=== PATIENT | female | born 1970 | race Caucasian/White ===

== ENCOUNTER → 2019-09-05 08:55 | Outpatient (BNVA) | payer OTHER, SELFPAY | PROVIDERS: Family Provider Internal Medicine; PCP Internal Medicine; Visit Provider Obstetrics & Gynecology | DX: Z01.419 Encounter for gynecological examination (general) (routine) without abnormal findings (principal); N39.46 Mixed incontinence | CPT/HCPCS: 88175 ==

== ENCOUNTER → 2020-01-27 10:17 | Outpatient (BNVA) | payer OTHER, SELFPAY | PROVIDERS: Family Provider Internal Medicine; PCP Internal Medicine; Visit Provider Internal Medicine Rheumatology | DX: M32.19 Other organ or system involvement in systemic lupus erythematosus (principal); R76.8 Other specified abnormal immunological findings in serum; Z79.899 Other long term (current) drug therapy; M79.7 Fibromyalgia; M19.90 Unspecified osteoarthritis, unspecified site; D69.3 Immune thrombocytopenic purpura; E55.9 Vitamin D deficiency, unspecified; I10 Essential (primary) hypertension; Z87.891 Personal history of nicotine dependence | CPT/HCPCS: 99214 ==

== ENCOUNTER 2020-02-16 11:02 | Outpatient (CLI) | payer OTHER, SELFPAY ==
--- NOTE | 2020-02-16 11:28 | XR_ITS ---
WS: [id number] CHEST 2 VIEWS HISTORY: shortness of breath COMPARISON: 04/12/2014 Lungs: 5 mm nodule central LEFT lung is stable over several prior years. No suspicious masses or nodu les. Cardiac size: Normal. Mediastinum/Aorta: Normal mediastinum. Bones: Normal. XR/XR chest 2V* [id number] IMPRESSION: Stable chest, no acute cardiopulmonary disease.
== END 2020-02-16 11:03 | disposition home or self-care (01) ==
LOC: RADWPI 11:05
PROVIDERS: Family Provider Internal Medicine; PCP Internal Medicine; Visit Provider Internal Medicine Rheumatology
DX: R06.02 Shortness of breath (principal)
CPT/HCPCS: 71046

== ENCOUNTER 2020-03-08 12:53 | Outpatient (CLI) | payer OTHER, SELFPAY ==
--- NOTE | 2020-03-08 13:03 | MM_ITS ---
WS: [id number] Bilateral screening digital mammogram, 03/08/2020 Clinical Data: SCREEN Comparison: 02/11/2019, 12/05/2016, 12/05/2015, 09/08/2013, 09/20/2012, 03/17/2012, 08/12/2011. Findings: The breast parenchymal pattern shows fat replacement. No spiculated masses or clustered calcification s are seen. There are no secondary signs of carcinoma. MM/[id number] Impression: 1. Negative bilateral mammogram unchanged. 2. Recommend annual screening mammograms. BIRADS: 1-Negative FOLLOW UP: 1 Year Follow-up The CAD coat checker was used.
== END 2020-03-08 12:54 | disposition home or self-care (01) ==
LOC: RADSHAW 12:58
PROVIDERS: PCP Internal Medicine; Visit Provider Internal Medicine
DX: Z12.31 Encounter for screening mammogram for malignant neoplasm of breast (principal)
CPT/HCPCS: 77067

== ENCOUNTER → 2020-04-25 15:44 | Outpatient (BNVA) | payer OTHER, SELFPAY | PROVIDERS: PCP Internal Medicine; Visit Provider Internal Medicine Rheumatology | DX: M32.19 Other organ or system involvement in systemic lupus erythematosus (principal); Z79.899 Other long term (current) drug therapy; M19.011 Primary osteoarthritis, right shoulder; D69.3 Immune thrombocytopenic purpura; M79.7 Fibromyalgia; H53.8 Other visual disturbances; Z79.52 Long term (current) use of systemic steroids | CPT/HCPCS: 99214 ==

== ENCOUNTER 2020-05-09 15:03 | Outpatient (CLI) | payer OTHER, SELFPAY ==
--- NOTE | 2020-05-09 15:06 | USCV_ITS ---
Neha Kaba Age: 50 Gender: F : 1970 Exam Date: 05/09/2020 15:23 Ordering Phys: Nava Briscoe MD Technologist: Avi Vallecillo Exam Location: [facility] [place] Indication: SOB BP: 140 / 80 HR: 66 Rhythm: Sinus Technical Quality: Poor because of body habitus MEASUREMENTS (Male / Female) Normal Values 2D ECHO LV Diastolic Diameter PLAX 4.2 cm 4.2 - 5.9 / 3.9 - 5.3 cm LV Systolic Diameter PLAX 2.7 cm IVS Diastolic Thickness 0.9 cm 0.6 - 1.0 / 0.6 - 0.9 cm IVS Systolic Thickness 1.3 cm LVPW Diastolic Thickness 0.9 cm 0.6 - 1.0 / 0.6 - 0.9 cm LVPW Systolic Thickness 1.3 cm LVOT Diameter 2.0 cm LV Ejection Fraction 2D Teich 66.3 % LV Ejection Fraction MOD 2C 51.7 % LV Ejection Fraction 2C AL 50.7 % LA Diameter 3.8 cm LA Width 4.5 cm LA Height 4.7 cm RA Width 4.2 cm RA Height 5.0 cm Aorta at Sinotubular Diameter 1.3 cm M-MODE LV Diastolic Diameter MM 6.0 cm 4.2 - 5.9 / 3.9 - 5.3 cm LV Systolic Diameter MM 3.5 cm LV Ejection Fraction MM Teich 71.8 % IVS Diastolic Thickness MM 1.0 cm 0.6 - 1.0 / 0.6 - 0.9 cm IVS Systolic Thickness MM 1.6 cm LVPW Diastolic Thickness MM 0.9 cm 0.6 - 1.0 / 0.6 - 0.9 cm LVPW Systolic Thickness MM 1.7 cm RV Diastolic Diameter MM 1.8 cm Aortic Annulus Diameter 3.1 cm LA Ao Ratio MM 1.2 MV E Point Septal Separation 1.3 cm DOPPLER AV Peak Velocity 149.0 cm/s LVOT Peak Velocity 113.0 cm/s AV Area Cont Eq vti 2.6 cm squared AV Area Cont Eq pk 2.5 cm squared MV Area PHT 5.0 cm squared Mitral E to A Ratio 2.0 MV E' Velocity 14.0 cm/s Mitral E to MV E' Ratio 7.9 Mitral E to LV E' Lateral Ratio 8.7 Mitral E to LV E' Septal Ratio 7.3 TR Peak Velocity 267.0 cm/s TR Peak Gradient 28.5 mmHg TV Peak E Velocity 167.0 cm/s Right Atrial Pressure 3.0 mmHg Pulmonary Artery Systolic Pressu 31.5 mmHg FINDINGS Left Ventricle Normal left ventricular cavity size. Normal left ventricular systolic function. No regional wall motion abnormalities. Left ventricular ejection fraction is estimated at 60 %. Normal diastolic function. Right Ventricle The right ventricle is normal in size and function. Right Atrium The right atrium is normal in size. Left Atrium The left atrium is normal in size. Mitral Valve Moderately thickened mitral valve. No mitral valve stenosis. Mild mitral valve regurgitation. Aortic Valve Moderate aortic valve calcification. No aortic valve stenosis. No aortic valve regurgitation. Tricuspid Valve Structurally normal tricuspid valve without significant stenosis or regurgitation. Pulmonary artery systolic pressure is normal. Pulmonic Valve Structurally normal pulmonic valve without significant stenosis. There is no pulmonic regurgitation. Pericardium Normal pericardium without effusion. Aorta Normal ascending aorta dimension. CONCLUSIONS 1-Normal left ventricular cavity size. Normal left ventricular systolic function. No regional wall motion abnormalities. Left ventricular ejection fraction is estimated at 60 %. Normal diastolic function. 2-Moderately thickened mitral valve. No mitral valve stenosis. Mild mitral valve regurgitation. 3-Pulmonary artery systolic pressure is within normal limits. 4-Right atrial pressure is around 5 mm of mercury. 5-When compared to prior echocardiogram dated 10/12/2017 there appeared to be mild mitral regurgitation now Daniel Burt MD (Electronically Signed) Final Date: 09 May 2020 17:56 S
== END 2020-05-09 15:04 | disposition home or self-care (01) ==
LOC: US 15:05
PROVIDERS: PCP Internal Medicine; Visit Provider Internal Medicine
DX: R06.02 Shortness of breath (principal); G47.33 Obstructive sleep apnea (adult) (pediatric); I34.0 Nonrheumatic mitral (valve) insufficiency
CPT/HCPCS: 93306

== ENCOUNTER → 2020-06-02 08:18 | Outpatient (BNVA) | payer OTHER, SELFPAY | PROVIDERS: PCP Internal Medicine; Visit Provider Ophthalmology | DX: U07.1 COVID-19 (principal) | CPT/HCPCS: 87635 ==

== ENCOUNTER → 2020-09-10 08:34 | Outpatient (BNVA) | payer OTHER, SELFPAY | PROVIDERS: PCP Internal Medicine; Visit Provider Internal Medicine Rheumatology | DX: M32.19 Other organ or system involvement in systemic lupus erythematosus (principal); M19.90 Unspecified osteoarthritis, unspecified site; Z79.899 Other long term (current) drug therapy; Z79.52 Long term (current) use of systemic steroids; M79.7 Fibromyalgia; Z87.891 Personal history of nicotine dependence | CPT/HCPCS: 99214 ==

== ENCOUNTER → 2021-01-03 14:38 | Outpatient (BNVA) | payer OTHER, SELFPAY | PROVIDERS: PCP Internal Medicine; Visit Provider Internal Medicine Rheumatology | DX: M32.19 Other organ or system involvement in systemic lupus erythematosus (principal); M19.90 Unspecified osteoarthritis, unspecified site; Z79.899 Other long term (current) drug therapy; M79.7 Fibromyalgia; Z87.891 Personal history of nicotine dependence | CPT/HCPCS: 99214 ==

== ENCOUNTER → 2021-04-10 13:05 | Outpatient (BNVA) | payer OTHER, SELFPAY | PROVIDERS: PCP Internal Medicine; Visit Provider Internal Medicine Rheumatology | DX: M32.19 Other organ or system involvement in systemic lupus erythematosus (principal); M15.9 Polyosteoarthritis, unspecified; Z79.899 Other long term (current) drug therapy; M79.7 Fibromyalgia; G47.33 Obstructive sleep apnea (adult) (pediatric); F32.9 Major depressive disorder, single episode, unspecified; Z87.891 Personal history of nicotine dependence | CPT/HCPCS: 99214 ==

== ENCOUNTER 2021-06-27 13:32 | Outpatient (CLI) | payer OTHER, SELFPAY ==
--- NOTE | 2021-06-27 13:39 | MM_ITS ---
WS: [id number] BILATERAL SCREENING DIGITAL MAMMOGRAM WITH CAD HISTORY: SCREENING COMPARISON: 03/08/2020 and 02/11/2019 and 12/05/2016 Bilateral CC and MLO views submitted. Computer aided detection analyzed. Breast composition: There are scattered areas of fibroglandular density. No suspicious masses, microc alcifications or architectural distortion. Mild asymmetry in the central LEFT breast is stable over m ultiple prior studies. MM/[id number] IMPRESSION: BI-RADS: 2-Benign FOLLOW UP: 1 Year Follow-up
== END 2021-06-27 13:33 | disposition home or self-care (01) ==
LOC: RADSHAW 13:36
PROVIDERS: PCP Internal Medicine; Visit Provider Internal Medicine
DX: Z12.31 Encounter for screening mammogram for malignant neoplasm of breast (principal)
CPT/HCPCS: 77067

== ENCOUNTER → 2021-09-09 11:00 | Outpatient (BNVA) | payer OTHER, SELFPAY | PROVIDERS: PCP Internal Medicine; Visit Provider Obstetrics & Gynecology | DX: N39.46 Mixed incontinence (principal) | CPT/HCPCS: 81000 ==

== ENCOUNTER 2022-08-14 12:44 | Outpatient (CLI) | payer OTHER, SELFPAY ==
--- NOTE | 2022-08-14 13:17 | MM_ITS ---
WS: [id number] Bilateral screening 3D tomosynthesis digital mammogram, 08/14/2022 Clinical Data: SCREEN Comparison: 06/27/2021, 03/08/2020, 02/11/2019, 12/05/2016, 12/05/2015, 09/08/2013, 09/20/2012, 09/03/2011, , 09/09/2011, 08/12/2011. Findings: The breast parenchymal pattern shows fibroglandular tissue. No spiculated masses or clustered calcifi cations are seen. There are no secondary signs of carcinoma. MM/[id number] Impression: 1. Negative bilateral mammogram unchanged. 2. Recommend annual screening mammograms. BIRADS: 1-Negative FOLLOW UP: 1 Year Follow-up The CAD linen checker was used.
== END 2022-08-14 12:45 | disposition home or self-care (01) ==
LOC: RAD 12:45
PROVIDERS: PCP Internal Medicine; Visit Provider Internal Medicine
DX: Z12.31 Encounter for screening mammogram for malignant neoplasm of breast (principal)
CPT/HCPCS: 77063; 77067

== ENCOUNTER 2022-08-27 09:00 | Outpatient (CLI) | payer OTHER, SELFPAY ==
--- NOTE | 2022-08-27 09:15 | USCV_ITS ---
Neha Baumann Age: 52 Gender: F : 1970 Exam Date: 08/27/2022 09:30 Ordering Phys: Nava Briscoe MD Technologist: Gonzalez Beyer [place] [facility] [place]ication: mitral regurgitation non rheumatic BP: 115 / 78 HR: 60 Rhythm: Sinus Technical Quality: Adequate MEASUREMENTS (Male / Female) Normal Values 2D ECHO LV Diastolic Diameter PLAX 4.9 cm 4.2 - 5.9 / 3.9 - 5.3 cm LV Systolic Diameter PLAX 2.6 cm IVS Diastolic Thickness 1.1 cm 0.6 - 1.0 / 0.6 - 0.9 cm IVS Systolic Thickness 1.2 cm LVPW Diastolic Thickness 1.3 cm 0.6 - 1.0 / 0.6 - 0.9 cm LVPW Systolic Thickness 2.1 cm LVOT Diameter 2.0 cm LV Ejection Fraction 2D Teich 77.8 % LV Ejection Fraction MOD 2C 69.4 % LV Ejection Fraction 2C AL 69.1 % LA Diameter 3.1 cm LA Width 3.7 cm LA Height 5.3 cm RA Width 4.1 cm RA Height 4.6 cm Aorta at Sinotubular Diameter 2.5 cm IVC Diameter 1.9 cm M-MODE Aortic Annulus Diameter 2.6 cm LA Ao Ratio MM 1.2 MV E Point Septal Separation 0.5 cm DOPPLER AV Peak Velocity 158.0 cm/s LVOT Peak Velocity 123.0 cm/s AV Area Cont Eq vti 3.0 cm squared AV Area Cont Eq pk 2.5 cm squared MV Peak Velocity 124.0 cm/s MV Area PHT 4.5 cm squared Mitral E to A Ratio 0.8 MV E' Velocity 44.0 cm/s Mitral E to MV E' Ratio 5.4 Mitral E to LV E' Lateral Ratio 6.7 Mitral E to LV E' Septal Ratio 4.6 TR Peak Velocity 127.9 cm/s TR Peak Gradient 6.5 mmHg TR Mean Velocity 101.1 cm/s TR Mean Gradient 4.3 mmHg TR Velocity Time Integral 26.3 cm Right Atrial Pressure 3.0 mmHg Pulmonary Artery Systolic Pressu 9.5 mmHg PV Peak Velocity 103.0 cm/s RV Acceleration Time 0.1 s RV Ejection Time 0.3 s RV AcT/ET 0.4 FINDINGS Left Ventricle Normal left ventricular size and systolic function, EF 74 %. No regional wall motion abnormalities. Grade I/IV diastolic dysfunction (abnormal relaxation filling pattern), normal to mildly elevated filling pressures. Mild left ventricular hypertrophy. Right Ventricle Normal right ventricular size and systolic function. Right Atrium The right atrium is normal in size. Left Atrium The left atrium is normal in size. Mitral Valve Trace mitral valve regurgitation. Aortic Valve No gross abnormalities Tricuspid Valve Gross abnormalities noted Pulmonic Valve Pulmonic valve not well visualized. Pericardium No pericardial effusion. Aorta Normal aortic annulus size. IVC Normal inferior vena cava. CONCLUSIONS Normal left ventricular size and systolic function, EF 74 %. No regional wall motion abnormalities. Grade I/IV diastolic dysfunction (abnormal relaxation filling pattern), normal to mildly elevated filling pressures. Mild left ventricular hypertrophy. Trace mitral valve regurgitation. There is no pericardial effusion. There are no intracardiac masses. Technically difficult study because of the poor ultrasonic window. Dr Pam Razo MD FACC (Electronically Signed) Final Date: 27 August 2022 20:54 S
[2022-08-27] MEDS: perflutren protein-a microsphr 0.22 mg/mL SDV 3 mL IV (10:51)
== END 2022-08-27 09:01 | disposition home or self-care (01) ==
PROVIDERS: PCP Internal Medicine; Visit Provider Internal Medicine
DX: I34.0 Nonrheumatic mitral (valve) insufficiency (principal)
CPT/HCPCS: C8929; Q9956

== ENCOUNTER → 2022-10-01 13:00 | Outpatient (BNVA) | payer OTHER, SELFPAY | PROVIDERS: PCP Internal Medicine; Visit Provider Obstetrics & Gynecology | DX: Z01.419 Encounter for gynecological examination (general) (routine) without abnormal findings (principal) | CPT/HCPCS: 87624 ==

== ENCOUNTER 2022-11-04 10:35 | Inpatient (IN) | payer OTHER, SELFPAY ==
[2022-11-04] VITALS (7 sets, daily range): BP systolic 145–188; BP diastolic 78–117; PULSE 60–82; RESP 14–22; TEMP 36.7–36.8; O2SAT 93–97
--- NOTE | 2022-11-04 10:44 | PC.NURSE ---
unable to get temp due to pt moving around
--- NOTE | 2022-11-04 10:51 | ECG_ITS ---
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 Measurements Intervals [place] Rate: 78 P: 61 DE: 198 QRS: 29 QRSD: 96 T: 87 QT: 393 QTc: 449 Interpretive Statements SINUS RHYTHM LOW QRS VOLTAGE IN PRECORDIAL LEADS [QRS DEFLECTION < 1.0 mV IN CHEST LEADS] POSSIBLE ANTERIOR MYOCARDIAL INFARCTION , OF INDETERMINATE AGE [30 ms Q WAVE IN V3/V4, OR R < 0.2 mV IN V4] INTERPRETATION BASED ON A DEFAULT AGE OF 40 YEARS No previous ECG available for comparison Electronically Signed On 11-04-2022 23:15:37 CDT by Pam Razo M.D. [email or web address]/store/NU/[id number] f
--- NOTE | 2022-11-04 11:42 | W.ED.NAVMDI ---
HPI - Nausea/Vomiting/Diarrhea General: Chief complaint: Nausea/Vomiting/Diarrhea Stated complaint: n/v Time Seen by Provider: 11/04/22 11:30 History of Present Illness: This 52-year-old female with a history ITP, fibromyalgia and SLE presents to the ER with vomiting that started this morning. Patient woke up and started vomiting. She has vomited multiple times that she has nothing left in her stomach. She denies pain, fever, chest pain or shortness of breath. She denies any sick contact. She is clinically stable. Associated nausea: Yes Associated symtoms: Reports nausea Review of Systems General: Reports: 10 or more systems reviewed and unremarkable except in HPI and below GI: Reports: nausea and vomiting PFSH ED PFSH: Medical History Blurry vision, right eye s/p surgery Depression with anxiety Fibromyalgia High risk medication use Hypertension Idiopathic thrombocytopenia purpura Inflammatory arthritis Meningioma Removed 07/23/2020. Sleep apnea Systemic lupus erythematosus Uterine fibroid Identified on ultrasound in 2009 Surgical History No history of previous surgery S/P brain surgery (08/02/20) Removal meningioma. Performed in [place], [place]. Family History Family/Other Breast cancer maternal aunt Ovarian cancer maternal aunt Thyroid disease maternal aunt Grandfather Hypertension paternal Diabetes paternal Father Hypertension Diabetes Physical Exam Const: COMMON NORMALS: no acute distress, patient oriented x3, no limitations and alert HENMT: COMMON NORMALS: normocephalic HEAD & SCALP: normocephalic Eye: COMMON NORMALS: EOMs intact bilaterally Neck/C-Spine: COMMON NORMALS: full ROM and supple Chest: COMMONS NORMALS: normal inspection of the chest Resp: COMMON NORMALS: normal respiratory effort, No retractions, No use of accessory muscles and clear to auscultation bilaterally AUSCULTATION: clear to auscultation bilaterally Cardio: COMMON NORMALS: regular rate, regular rhythm and No murmurs present (Cardio) RATE: regular rate RHYTHM: regular rhythm GI: COMMON NORMALS: Normal to inspection, nondistended, normoactive bowel sounds present and non-tender : COMMON NORMALS: Yes no CVA tenderness BLADDER/KIDNEY EXAM: Yes no CVA tenderness Back/Pelvis: COMMON NORMALS: no CVA tenderness and no thoracic nor lumbar tenderness Extremity: GENERAL: Yes normal exam except as noted Neuro: COMMON NORMALS: patient oriented x3 and no focal motor deficits SENSORIUM/ORIENTATION: Yes alert Psych: COMMON NORMALS: mental status grossly normal and cooperative Course Consultations: Consultation #1: Case discussed with Dr. Vela who accepted patient for admission. Vital Signs: Vital signs: Vital Signs Pulse Rate 82 11/04/22 10:37 Respiratory Rate 22 H 11/04/22 10:37 Blood Pressure 182/117 11/04/22 10:37 Pulse Oximetry 97 11/04/22 10:37 Oxygen Delivery Me thod 11/04/22 10:37 MDM - Nausea/Vomiting/Diarrhea Medical Decision Making Medical decision making: Patient presents with sudden onset nausea and vomiting that started this morning. Work-up reveals hypokalemia with potassium of 2.6. Patient has no fever, chest pain, shortness of breath or any other significant pertinent symptoms. Oral and IV potassium replacement started. Case discussed with Dr. Vela who accepted patient for observation placement. Lab Data 11/04/22 11:47 11/04/22 11:47 Radiology Impressions Chest X-Ray 11/04/22 12:53 IMPRESSION: CARDIOMEGALY WITH NO ACUTE PULMONARY CHANGE. Laboratory Results WBC 12.5 10^3/uL (4.0-10.0) H 11/04/22 11:47 RBC 5.50 10^6/uL (4.1-5.3) H 11/04/22 11:47 Hgb 13.7 g/dL (11.5-15.3) 11/04/22 11:47 Hct 44.4 % (37.0-47.0) 11/04/22 11:47 MCV 80.7 fl (81-99) L 11/04/22 11:47 MCH 24.9 pg (28.0-34.0) L 11/04/22 11:47 MCHC 30.9 g/dL (30.0-36.0) 11/04/22 11:47 RDW 16.2 % (12.1-15.1) H 11/04/22 11:47 Plt Count 207 10^3/cmm (130-400) 11/04/22 11:47 MPV 11.8 fL (7.4-10.4) H 11/04/22 11:47 Neut % (Auto) 86.5 % 11/04/22 11:47 Lymph % (Auto) 7.3 % 11/04/22 11:47 Wagoner % (Auto) 5.2 % 11/04/22 11:47 Eos % (Auto) 0.1 % 11/04/22 11:47 Baso % (Auto) 0.6 % 11/04/22 11:47 Neut # (Auto) 10.78 10^3/uL (1.8-7.7) H 11/04/22 11:47 Lymph # (Auto) 0.9 10^3/uL (0.8-4.8) 11/04/22 11:47 Wagoner # (Auto) 0.7 10^3/uL (0.2-0.9) 11/04/22 11:47 Eos # (Auto) 0.0 10^3/uL (0.0-0.8) 11/04/22 11:47 Baso # (Auto) 0.1 10^3/uL (0.0-0.1) 11/04/22 11:47 Nucleated RBC % (auto) 0 % 11/04/22 11:47 Nucleated RBCs # 0.0 /100WBC 11/04/22 11:47 Sodium 142 mmol/L (136-145) 11/04/22 11:47 Potassium 2.6 mmol/L (3.5-5.1) L* 11/04/22 11:47 Chloride 105 mmol/L (98-107) 11/04/22 11:47 Carbon Dioxide 19 mmol/L (22-29) L 11/04/22 11:47 Anion Gap 20.6 (5-19) H 11/04/22 11:47 BUN 10 mg/dL (6-20) 11/04/22 11:47 Creatinine 0.6 mg/dL (0.5-0.9) 11/04/22 11:47 GFR Calculation 105.4 mL/min (90-130) 11/04/22 11:47 Glucose 208 mg/dL (65-115) H 11/04/22 11:47 Calculated Osmolality 299 mOsm/kg (285-295) H 11/04/22 11:47 Calcium 9.2 mg/dL (8.5-10.5) 11/04/22 11:47 Total Bilirubin 0.5 mg/dL (0.15-1.2) 11/04/22 11:47 AST 19 U/L (0-32) 11/04/22 11:47 ALT 21 U/L (0-33) 11/04/22 11:47 Alkaline Phosphatase 82 U/L (35-105) 11/04/22 11:47 Troponin T Baseline 6 ng/L (0-10) 11/04/22 11:45 Total Protein 7.6 g/dL (6.6-8.7) 11/04/22 11:47 Albumin 4.3 g/dL (3.5-5.2) 11/04/22 11:47 Globulin 3.3 g/dL (1.3-4.6) 11/04/22 11:47 Lipase 25 U/L (13-60) 11/04/22 11:47 Discharge Plan Discharge Patient Disposition: Placed in Observation Clinical Impression: Acute hypokalemia, Nausea & vomiting Coding Level of Care Code ED Medical Facilities Section Director for Nico Smith
[2022-11-04 11:56] LABS: Basophils # 0.1 10^3/uL (0.0-0.1); Basophils % 0.6 %; Eosinophils % 0.1 %; Hematocrit 44.4 % (37.0-47.0); Hemoglobin 13.7 g/dL (11.5-15.3); Lymphocytes # 0.9 10^3/uL (0.8-4.8); Lymphocytes % 7.3 %; Mean Corpuscular HGB Conc 30.9 g/dL (30.0-36.0); Mean Corpuscular Hemoglobin 24.9 pg (28.0-34.0); Mean Corpuscular Volume 80.7 fl (81-99); Mean Platelet Volume 11.8 fL (7.4-10.4); Monocytes # 0.7 10^3/uL (0.2-0.9); Monocytes % 5.2 %; Neutrophils # 10.78 10^3/uL (1.8-7.7); Neutrophils % 86.5 %; Nucleated Red Blood Cells % 0 %; Platelet Count 207 10^3/cmm (130-400); Red Cell Distribution Width 16.2 % (12.1-15.1); White Blood Count 12.5 10^3/uL (4.0-10.0)
[2022-11-04] MEDS: metoclopramide 5 mg/mL SDV 2 mL 10 MG IVP (11:58)
[2022-11-04] MEDS: sodium chloride 0.9% 1,000 ML 999 ML IV (11:58)
[2022-11-04 12:14] LABS: Alanine Aminotransferase 21 U/L (0-33); Albumin Level 4.3 g/dL (3.5-5.2); Alkaline Phosphatase 82 U/L (35-105); Anion Gap 20.6 (5-19); Aspartate Amino Transferase 19 U/L (0-32); Blood Urea Nitrogen 10 mg/dL (6-20); Calcium 9.2 mg/dL (8.5-10.5); Carbon Dioxide 19 mmol/L (22-29); Chloride 105 mmol/L (98-107); Globulin 3.3 g/dL (1.3-4.6); Glomerular Filtration Rate 105.4 mL/min (90-130); Glucose 208 mg/dL (65-115); Lipase 25 U/L (13-60); Osmolality Calculated 299 mOsm/kg (285-295); Sodium 142 mmol/L (136-145); Total Bilirubin 0.5 mg/dL (0.15-1.2); Total Protein 7.6 g/dL (6.6-8.7)
[2022-11-04 12:23] LABS: Potassium 2.6 mmol/L (3.5-5.1)
[2022-11-04] MEDS: potassium chloride ER 20 mEq Tablet 40 MEQ PO (12:49)
--- NOTE | 2022-11-04 12:53 | XR_ITS ---
WS: [id number] EXAMINATION: XR chest 1V [id number] REASON FOR EXAM: chest pain ORDER DATE: 11/04/2022 12:54 PM FINDINGS: There are perihilar and parenchymal granulomatous calcifications. Cardiomegaly is demonstrated. The re are no pleural effusions. XR/XR chest 1V [id number] IMPRESSION: CARDIOMEGALY WITH NO ACUTE PULMONARY CHANGE.
--- NOTE | 2022-11-04 13:04 | ECG_ITS ---
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 Measurements Intervals [place] Rate: 61 P: 51 IA: 188 QRS: -5 QRSD: 101 T: 32 QT: 433 QTc: 436 Interpretive Statements SINUS RHYTHM WITH SINUS ARRHYTHMIA POSSIBLE LEFT ATRIAL ENLARGEMENT [-0.1mV P-WAVE IN V1/V2] POSSIBLE ANTERIOR MYOCARDIAL INFARCTION , OF INDETERMINATE AGE [30 ms Q WAVE IN V3/V4, OR R < 0.2 mV IN V4] No previous ECG available for comparison Electronically Signed On 11-04-2022 23:10:32 CDT by Pam Razo M.D. [email or web address] health [email or web address] hospital.[employer]/store/OM/[id number]
[2022-11-04] MEDS: ALPRAZolam 0.5 mg Tablet 0.25 MG PO ×2 (13:14→19:45)
[2022-11-04] MEDS: potassium chloride premix 100 ML 50 MEQ IV (13:16)
[2022-11-04 13:33] LABS: Troponin(5th) Baseline 6 ng/L (0-10)
[2022-11-04] MEDS: ondansetron 2 mg/ML SDV 2 mL 4 MG IVP ×2 (13:45→18:45)
[2022-11-04 14:16] LABS: Troponin 5 2HR 8.06 ng/L (0-10)
[2022-11-04 14:27] LABS: Troponin 5 2HR Delta 2.06 ABS# (0-10)
--- NOTE | 2022-11-04 17:56 | CTR_ITS ---
PROCEDURE INFORMATION: Exam: CT Abdomen And Pelvis Without Contrast Exam date and time: 11/04/2022 6:30 PM Age: 52 years old Clinical indication: Abdominal pain; Epigastric; Additional info: Abdominal pain, abdominal pain, epigastric, evaluate for ileus, perforation TECHNIQUE: Imaging protocol: Computed tomography of the abdomen and pelvis without contrast. Radiation optimization: All CT scans at this facility use at least one of these dose optimization techniques: automated exposure control; mA and/or kV adjustment per patient size (includes targeted exams where dose is matched to clinical indication); or iterative reconstruction. REPORTING DATA: Count of CT and Cardiac NM exams in prior 12 months: This patient has received 0 known CTs and 0 known cardiac nuclear medicine studies in the 12 months prior to the current study. COMPARISON: CR XR chest 2V* [id number] 02/16/2020 11:38 AM RADIATION DOSE METRICS: Total DLP (mGy-cm): 1063.19 FINDINGS: Liver: 2.2 cm ill-defined nodule in the superior right liver lobe. 4.4 cm hypodense nodule in the posterior right liver lobe. 2.9 cm low-density nodule in the posterior inferior right liver lobe. Gallbladder and bile ducts: Normal. No calcified stones. No ductal dilation. Pancreas: Normal. No ductal dilation. Spleen: Calcified granulomas in the spleen. Adrenal glands: Normal. No mass. Kidneys and ureters: Normal. No hydronephrosis. Stomach and bowel: 11.0 x 9.6 x 7.8 cm lobulated mass in the left upper quadrant, anterior to the spleen and indenting the superior stomach. Mild diverticulosis of the colon. No diverticulitis. The small bowel is unremarkable. No obstruction. Appendix: The appendix is visualized and is normal. Intraperitoneal space: Unremarkable. No free air. No significant fluid collection. Vasculature: Unremarkable. No abdominal aortic aneurysm. Lymph nodes: Unremarkable. No enlarged lymph nodes. Urinary bladder: Unremarkable as visualized. Reproductive: Pedunculated calcified uterine fibroids. The ovaries are unremarkable. Bones/joints: Mild degenerative changes of the spine. No acute fracture or lytic lesion. Soft tissues: Lumbar soft tissue edema. CT/CT abdomen pelvis wo con [id number] IMPRESSION: 1. 11.0 cm lobulated mass in the left upper quadrant. This appears separate from the spleen and pancreas and indents the stomach. 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 Sarcoma, lymphoma, or metastatic disease are also in the differential. Tissue sampling is recommended. 2. Multiple low-density nodules in the liver, suspicious for metastatic disease. This can be further evaluated with liver MRI.
--- NOTE | 2022-11-04 17:58 | PM.HP ---
Providers/Chief Complaint Admitting Physician: Becka Vela MD Primary Care Provider: Nava Briscoe MD Chief Complaint: n/v History of Present Illness Neha Baumann is a 52 year old female with PMH lupus p/w multiple episodes of nausea, vomiting and epigastric pain that started this morning and has peristsed. she presnted to ER as no relief with OTC medications. Deniesn chest pain dyspanea palpitataion. Had endoscopy with Dr. Gee few months ago, records N/a at this time. Review of Systems General: Reports: 10 or more systems reviewed and unremarkable except in HPI and below Const: Denies: fever(s), chills or body aches Eyes: Denies: change in vision, blurry vision or photophobia ENMT: Reports: hoarseness; Denies: throat pain, enlarged tonsils, odynophagia or nasal congestion Card: Denies: chest pain, palpitations, irregular heart rhythm, edema, swelling of feet/ankles, lightheadedness, pre-syncope, dyspnea on exertion or orthopnea Resp: Denies: dyspnea, productive cough, non-productive cough, wheezing, stridor, pain on inspiration, change in phlegm color, hemoptysis or chest congestion GI: Denies: abdominal pain, nausea, vomiting, hematemesis, coffee ground emesis, dysphagia, heartburn, diarrhea, constipation, GI cramping, change in stool character, hematochezia or melena : Denies: flank pain, difficulty voiding, dysuria, urinary frequency, urinary urgency, urinary hesitancy or hematuria Musc: Denies: neck pain, back pain, extremity pain, joint swelling, joint warmth or deformity Neuro: Denies: headache(s), numbness in extremities, weakness in extremities, sensory changes, difficulty walking, frequent falls, dizziness, vertigo, behavioral changes, Slurred speech present or seizure-like activity Psych: Denies: anxiety, depression, suicidal ideation or homicidal ideation Endo: Denies: polyuria, polydipsia, tired all the time, cold intolerance or hot flashes Severo/Lymph: Denies: easy bruising or easy bleeding Medications/Allergies Home Medications Medication Instructions Recorded Confirmed Last Taken Type alprazolam 0.5 mg tablet 0.25 mg PO Q6H PRN anxiety 09/05/19 11/04/22 Unknown History bumetanide 1 mg tablet 1 mg PO BID 09/05/19 11/04/22 Unknown History lisinopril 40 mg tablet 40 mg PO DAILY 09/05/19 11/04/22 Unknown History paroxetine HCl 40 mg tablet (Paxil) 40 mg PO DAILY 09/05/19 11/04/22 Unknown History belimumab 200 mg/mL subcutaneous 200 mg SUBCUT .Q7days #4 mL 07/07/22 11/04/22 Unknown Rx syringe (Benlysta) cholecalciferol (vitamin D3) 50 50 mcg PO DAILY #30 caps 07/07/22 11/04/22 Unknown Rx mcg (2,000 unit) capsule leflunomide 20 mg tablet 20 mg PO DAILY #30 tabs 07/07/22 11/04/22 Unknown Rx prednisone 2.5 mg tablet 2.5 mg PO BID #60 tabs 08/25/22 11/04/22 Unknown Rx albuterol sulfate 2.5 mg/3 mL 2.5 mg inhalation Q4H PRN 11/04/22 11/04/22 Unknown History (0.083 %) solution for nebulization Shortness Of Breath amlodipine 10 mg tablet 10 mg PO QAM 11/04/22 11/04/22 Unknown History esomeprazole magnesium 40 mg 40 mg PO QAM 11/04/22 11/04/22 Unknown History capsule,delayed release hydroxychloroquine 200 mg tablet 200 mg PO BID 11/04/22 11/04/22 Unknown History ondansetron 4 mg disintegrating 4 mg PO Q6H PRN Nausea And Vomiting 11/04/22 11/04/22 Unknown History tablet potassium chloride 10 mEq 10 meq PO DAILY 11/04/22 11/04/22 Unknown History tablet,extended release prednisone 5 mg tablet 5 mg PO .UP TO BID PRN joint pain 11/04/22 11/04/22 Unknown History flare Allergies Allergy/AdvReac Type Severity Reaction Status Date / Time acetaminophen [From Vicodin] AdvReac Mild nauseated Verified 11/04/22 12:55 hydrocodone [From Vicodin] AdvReac Mild nauseated Verified 11/04/22 12:55 PFSH Acute PFSH: Medical History Blurry vision, right eye s/p surgery Depression with anxiety Fibromyalgia High risk medication use Hypertension Idiopathic thrombocytopenia purpura Inflammatory arthritis Meningioma Removed 07/23/2020. Sleep apnea Systemic lupus erythematosus Uterine fibroid Identified on ultrasound in 2009 Surgical History No history of previous surgery S/P brain surgery (08/02/20) Removal meningioma. Performed in [place], [place]. Family History Family/Other Breast cancer maternal aunt Ovarian cancer maternal aunt Thyroid disease maternal aunt Grandfather Hypertension paternal Diabetes paternal Father Hypertension Diabetes Vitals/I&O/Wt Last Vital Signs Temp 98.0 F 11/04/22 16:00 Pulse 64 11/04/22 16:00 Resp 14 11/04/22 16:00 BP 179/102 11/04/22 16:00 Pulse Ox 96 11/04/22 16:00 O2 Del Method 11/04/22 16:00 11/04/22 11/04/22 11/04/22 06:59 14:59 22:59 Intake Total 1100 / 1100 Balance 1100 / 1100 Weight last 48 hrs Weight 108.862 kg Weight 108.862 kg Physical Exam Narrative: General: No acute distress, AO x3 HEENT: PERRLA, pupils bilaterally equal and reactive, pallors not present Chest: Normal vesicular breath sounds, no added sounds, equal good air entry bilaterally CVS: S1-S2 regular, no murmurs, no tachycardia, no gallops, no rubs Abdomen: Soft,tender to palpation in the epigatrsic region. ? palpable mass in the RUQ Neuro: No focal deficits, no facial deformity, AO x3, power 5/5 in all limbs Data 11/04/22 11:47 11/04/22 11:47 A&P Assessment and plan (1) Nausea & vomiting: (2) Abdominal pain: (3) Acute hypokalemia: Plan presenting with intractable nausea, vomiting and abdominal pain no hematemesis, diarrhea or corona no sick contacts no h/o consumption of outsode food TTP in epigastric area , ?palpable mass RUQ has been diagnosed with indigestion in the past, [facility] in Apr 2022, will obtain records in am Differentials include acute gatsroenteritis, severe gastritis, hiatal hernia, cholelithiasis Will obtain CT abdomen given palpable mass , evaluate for ileus, obstruction, cholelithiasis prn zofran, reglan for symptomatic control acute hypokalemia with reported parasthesias in LE Likely 2/2 GI lossed start IVF NS with KCL @ 75 cc/hr clear liquid diet for now protonix 40 mg iv q12h Attestations Medical Necessity Statement*: anticipate less than 2 midnight stay for evaluation of intractable nausea, vomiting Coding Level of Care Code Acute Code for Chg Fwd Moderate MDM includes number and complexity of problems actively addressed during encounter, amount and/or complexity of data reviewed/ordered and described risk of complication, morbidity or mortality of management as documented Diagnoses Nausea & vomiting R11.2 Abdominal pain R10.9 Acute hypokalemia E87.6
[2022-11-04] MEDS: pantoprazole 40 mg SDV IVP (18:44)
[2022-11-04] MEDS: sodium chlor 0.9% + KCl 20 mEq 20 MEQ/1,000 ML BAG 100 MEQ IV (18:47)
--- NOTE | 2022-11-04 19:34 | PC.NURSE ---
Patient gave consent that sister in law Vania Phillips could have information phone number is [phone] and brother Migel Phillips phone number [phone] as well as a Parul Floyd. These can be added to her contact list.
[2022-11-04] MEDS: metoclopramide 5 mg/mL SDV 2 mL IVP (19:45)
[2022-11-05 03:47] VITALS: BP 186/93; PULSE 69; RESP 16; TEMP 36.8; O2SAT 95
[2022-11-05] MEDS: sodium chlor 0.9% + KCl 20 mEq 20 MEQ/1,000 ML BAG 100 MEQ IV (03:59)
[2022-11-05 05:25] LABS: Basophils % 0.4 %; Eosinophils % 0.2 %; Hematocrit 39.3 % (37.0-47.0); Hemoglobin 12.3 g/dL (11.5-15.3); Lymphocytes # 1.7 10^3/uL (0.8-4.8); Lymphocytes % 17.1 %; Mean Corpuscular HGB Conc 31.3 g/dL (30.0-36.0); Mean Corpuscular Hemoglobin 25.8 pg (28.0-34.0); Mean Corpuscular Volume 82.6 fl (81-99); Mean Platelet Volume 12.1 fL (7.4-10.4); Monocytes # 0.8 10^3/uL (0.2-0.9); Monocytes % 8.4 %; Neutrophils # 7.38 10^3/uL (1.8-7.7); Neutrophils % 73.6 %; Nucleated Red Blood Cells % 0 %; Platelet Count 175 10^3/cmm (130-400); Red Blood Count 4.76 10^6/uL (4.1-5.3); Red Cell Distribution Width 16.7 % (12.1-15.1)
[2022-11-05] MEDS: pantoprazole 40 mg SDV IVP (05:26)
[2022-11-05 05:37] LABS: Alanine Aminotransferase 18 U/L (0-33); Albumin Level 3.7 g/dL (3.5-5.2); Alkaline Phosphatase 66 U/L (35-105); Anion Gap 13.3 (5-19); Aspartate Amino Transferase 17 U/L (0-32); Blood Urea Nitrogen 5 mg/dL (6-20); Calcium 8.3 mg/dL (8.5-10.5); Carbon Dioxide 24 mmol/L (22-29); Chloride 113 mmol/L (98-107); Globulin 2.4 g/dL (1.3-4.6); Glomerular Filtration Rate 130.1 mL/min (90-130); Glucose 90 mg/dL (65-115); Osmolality Calculated 301 mOsm/kg (285-295); Potassium 3.3 mmol/L (3.5-5.1); Sodium 147 mmol/L (136-145); Total Bilirubin 0.5 mg/dL (0.15-1.2); Total Protein 6.1 g/dL (6.6-8.7)
[2022-11-05 06:00] VITALS: PULSE 71
[2022-11-05 08:00] VITALS: BP 139/89; PULSE 73; RESP 16; TEMP 36.8; O2SAT 92
--- NOTE | 2022-11-05 09:40 | PC.CHAP ---
Pastoral Care Encounter/Spiritual Assessment Type of Contact [] Declined shrimp cleaner visit [] Patient/Family/Request visit [] Outpatient visit [] Follow-up visit [] Physician referral [] Code/Alert [x] Routine visit [] Staff referral [] Actively dying [] Patient sleeping [] Family support [] [] Out of room [] Palliative care [] [] Receiving care in room [] Pre-surgical visit [] Trauma [] Long length of stay [] ICU visit [] Other: Relational/Emotional Strength [x] Patient feels connected with others/family/visitors/staff [] Distress [] Loneliness/isolation [] Abandonment Spirituality of Patient [x] Person of Karen [x] Attends [employer] of their Karen [x] Believes in Prayer [] Reads Bible or Episcopal materials [] There are Spiritual issues to be addressed [employer] Range [employer]ician Interventions [x] Prayer [x] Active listening [x] Non-anxious presence [x] Spiritual/emotional support [] Crisis/trauma care [] Spiritual counseling [] Bereavement support [] Provided bereavement packet [] Provided Bible/devotional materials [] Provided toy/stuffed animal, coloring book to patient or family member [] Provided Communion [] Anointing/[place] [] Salvation [x] Completed spiritual assessment [] Other: Impact on Illness or Injury [] Angry [] Fearful [] Anxious [] Often cries [] Exhaustion [] Unable to work [] Unable to attend taoism [] Unable to walk/stand [] Unable to read [] Unable to drive [] Unable to eat/drink [] Unable to sleep [] Unable to be with family [] Patient intubated [] Other: Summary Pt stated she is much better today than yesterday. She is waiting to hear from the doctor as to what caused her problems and to also determine a treatment plan. Pt is a person of karen and requested prayer. She has a strong support system outside the hospital. Time spent with patient 10m
[2022-11-05 11:33] VITALS: BP 178/102; PULSE 78; RESP 18; TEMP 37.3; O2SAT 95
[2022-11-05] MEDS: amlodipine 10 mg Tablet PO (13:12)
[2022-11-05] MEDS: lisinopril 20 mg Tablet 40 MG PO (13:12)
[2022-11-05] MEDS: potassium chloride ER 20 mEq Tablet 40 MEQ PO (13:12)
--- NOTE | 2022-11-05 14:27 | PM.DCS ---
Discharge Providers Date of Admission: 11/04/22 13:41 Date of Discharge: November 05, 2022 Attending Provider at Admission: Becka Vela MD Attending Provider at Discharge: Becka Vela MD Primary Care Provider: Nava Briscoe MD Diagnoses at Discharge Discharge Diagnosis (1) Nausea & vomiting: Status: Acute (2) Abdominal pain: Status: Acute (3) Acute hypokalemia: Status: Acute Reason for Visit Reason for Visit: n/v Hospital Course Hospital Course Neha Baumann is a 52 year old female with PMH lupus p/w multiple episodes of nausea, vomiting and epigastric pain that started morning of admission. She had no relief with [id number] medications and presented to the ER. She was found to have evidence of significant hypokalemia as a result of her GI losses. On exam she had tenderness to palpation in the epigastric region and there was concern for a palpable mass. Underwent a CT of the abdomen and pelvis which showed 11 cm lobulated mass in the left upper quadrant which appeared to be separate from the spleen and pancreas and indented the stomach. Suspected to be a gastrointestinal stromal tumor, versus sarcoma or lymphoma in the differential. There were multiple low-density nodules in the liver suspicious for metastatic disease. She received treatment with IV fluids, supplemental potassium, IV Zofran and Reglan. She also received IV Protonix every 12 hours. Following this management her symptoms are much improved. Her abdominal pain and nausea has resolved. She is eager to return home. Findings on the CAT scan with regards to mass were discussed. We have made an urgent referral at [facility] gastroenterology, we have been told that they will review within the next 2 weeks and contact the patient. In the interim also making an appointment with general surgery as outpatient at [facility] to expedite biopsy of the mass, perhaps this can be done endoscopically. Unfortunately we do not have general surgery services available at the hospital until November 11 therefore I am unable to expedite her work-up as an inpatient. Physical Exam Narrative: General: No acute distress, AO x3 HEENT: PERRLA, pupils bilaterally equal and reactive, pallors not present Chest: Normal vesicular breath sounds, no added sounds, equal good air entry bilaterally CVS: S1-S2 regular, no murmurs, no tachycardia, no gallops, no rubs Abdomen: Soft, nontender, no organomegaly, bowel sounds present Neuro: No focal deficits, no facial deformity, AO x3, power 5/5 in all limbs Discharge Data Studies Completed and Pending Completed Studies During Hospitalization Category Date Time Status CT abdomen pelvis wo con [id number] Routine Cat Scan 11/04/22 17:56 Completed XR chest 1V [id number] Stat Exams 11/04/22 12:53 Completed Radiology Impressions Chest X-Ray 11/04/22 12:53 IMPRESSION: CARDIOMEGALY WITH NO ACUTE PULMONARY CHANGE. Abdomen/Pelvis CT 11/04/22 17:56 IMPRESSION: 1. 11.0 cm lobulated mass in the left upper quadrant. This appears separate from the spleen and pancreas and indents the stomach. 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 Sarcoma, lymphoma, or metastatic disease are also in the differential. Tissue sampling is recommended. 2. Multiple low-density nodules in the liver, suspicious for metastatic disease. This can be further evaluated with liver MRI. ADDENDUM: 11/04/221920 THIS REPORT CONTAINS FINDINGS THAT MAY BE CRITICAL TO PATIENT CARE. The findings were verbally communicated via telephone conference with Dr Jesus at 7:19 PM CDT on 11/04/2022. The findings were acknowledged and understood. Laboratory Results WBC 10.0 10^3/uL (4.0-10.0) 11/05/22 04:34 RBC 4.76 10^6/uL (4.1-5.3) 11/05/22 04:34 Hgb 12.3 g/dL (11.5-15.3) 11/05/22 04:34 Hct 39.3 % (37.0-47.0) 11/05/22 04:34 MCV 82.6 fl (81-99) 11/05/22 04:34 MCH 25.8 pg (28.0-34.0) L 11/05/22 04:34 MCHC 31.3 g/dL (30.0-36.0) 11/05/22 04:34 RDW 16.7 % (12.1-15.1) H 11/05/22 04:34 Plt Count 175 10^3/cmm (130-400) 11/05/22 04:34 MPV 12.1 fL (7.4-10.4) H 11/05/22 04:34 Neut % (Auto) 73.6 % 11/05/22 04:34 Lymph % (Auto) 17.1 % 11/05/22 04:34 [place] % (Auto) 8.4 % 11/05/22 04:34 Eos % (Auto) 0.2 % 11/05/22 04:34 Baso % (Auto) 0.4 % 11/05/22 04:34 Neut # (Auto) 7.38 10^3/uL (1.8-7.7) 11/05/22 04:34 Lymph # (Auto) 1.7 10^3/uL (0.8-4.8) 11/05/22 04:34 [place] # (Auto) 0.8 10^3/uL (0.2-0.9) 11/05/22 04:34 Eos # (Auto) 0.0 10^3/uL (0.0-0.8) 11/05/22 04:34 Baso # (Auto) 0.0 10^3/uL (0.0-0.1) 11/05/22 04:34 Nucleated RBC % (auto) 0 % 11/05/22 04:34 Nucleated RBCs # 0.0 /100WBC 11/05/22 04:34 Sodium 147 mmol/L (136-145) H 11/05/22 04:34 Potassium 3.3 mmol/L (3.5-5.1) L 11/05/22 04:34 Chloride 113 mmol/L (98-107) H 11/05/22 04:34 Carbon Dioxide 24 mmol/L (22-29) 11/05/22 04:34 Anion Gap 13.3 (5-19) 11/05/22 04:34 BUN 5 mg/dL (6-20) L 11/05/22 04:34 Creatinine 0.5 mg/dL (0.5-0.9) 11/05/22 04:34 GFR Calculation 130.1 mL/min (90-130) H 11/05/22 04:34 Glucose 90 mg/dL (65-115) 11/05/22 04:34 Calculated Osmolality 301 mOsm/kg (285-295) H 11/05/22 04:34 Calcium 8.3 mg/dL (8.5-10.5) L 11/05/22 04:34 Total Bilirubin 0.5 mg/dL (0.15-1.2) 11/05/22 04:34 AST 17 U/L (0-32) 11/05/22 04:34 ALT 18 U/L (0-33) 11/05/22 04:34 Alkaline Phosphatase 66 U/L (35-105) 11/05/22 04:34 Troponin T Baseline 6 ng/L (0-10) 11/04/22 11:45 Troponin T 120 Minute 8.06 ng/L (0-10) 11/04/22 11:45 Delta Troponin T 2.06 ABS# (0-10) 11/04/22 11:45 Total Protein 6.1 g/dL (6.6-8.7) L 11/05/22 04:34 Albumin 3.7 g/dL (3.5-5.2) 11/05/22 04:34 Globulin 2.4 g/dL (1.3-4.6) 11/05/22 04:34 Lipase 25 U/L (13-60) 11/04/22 11:47 Vitals Last Vital Signs Temp 99.1 F 11/05/22 11:33 Pulse 78 11/05/22 11:33 Resp 18 11/05/22 11:33 BP 178/102 11/05/22 11:33 Pulse Ox 95 11/05/22 11:33 O2 Del Method 11/05/22 11:33 Discharge Plan Discharge Patient Disposition: Home Condition: Stable Prescriptions: New Protonix 40 mg tablet,delayed release (DR/EC) 40 mg PO BID 28 Days Qty: 56 0RF Continued bumetanide 1 mg tablet 1 mg PO BID lisinopril 40 mg tablet 40 mg PO DAILY alprazolam 0.5 mg tablet 0.25 mg PO Q6H PRN (Reason: anxiety) paroxetine HCl [Paxil] 40 mg tablet 40 mg PO DAILY cholecalciferol (vitamin D3) 50 mcg (2,000 unit) capsule 50 mcg PO DAILY Qty: 30 3RF leflunomide 20 mg tablet 20 mg PO DAILY Qty: 30 3RF Benlysta 200 mg/mL syringe 200 mg SUBCUT .Q7days Qty: 4 3RF Rx Instructions: not started as of 11/04/22 prednisone 2.5 mg tablet 2.5 mg PO BID Qty: 60 3RF albuterol sulfate 2.5 mg /3 mL (0.083 %) solution for nebulization 2.5 mg inhalation Q4H PRN (Reason: Shortness Of Breath) potassium chloride 10 mEq tablet extended release 10 meq PO DAILY amlodipine 10 mg tablet 10 mg PO QAM ondansetron 4 mg tablet,disintegrating 4 mg PO Q6H PRN (Reason: Nausea And Vomiting) prednisone 5 mg tablet 5 mg PO .UP TO BID PRN (Reason: joint pain flare) hydroxychloroquine 200 mg tablet 200 mg PO BID Discontinued esomeprazole magnesium 40 mg capsule,delayed release(DR/EC) 40 mg PO QAM Discharge Orders: Discharge Order (Routine); Ordered 11/05/22 Ordered By: Becka Vela Referrals: [facility], GI [Other] - 2 weeks (FAXED REFERRAL FOR APPOINTMENT ) Nava Briscoe MD [Primary Care Provider] - 11/10/22 11:15 am (FAXED ORDERS) Jean Kirkpatrick DO [Physician] - 1 week Discharge Diet: Usual diet Discharge Activity: Resume usual activity Patient Instructions: Abdominal Pain - Adult, Pantoprazole (By mouth), Acute Nausea and Vomiting (GEN), Opioid Safety Discharge Attestations Time Spent in Discharge Care*: greater than 30 min Quality Metrics Clinical Quality Measures [ No reported AMI, CVA or VTE this stay] Coding Level of Care Code Acute Code for Chg Fwd Diagnoses Nausea & vomiting R11.2 Abdominal pain R10.9 Acute hypokalemia E87.6
== END 2022-11-05 17:15 | disposition home or self-care (01) | DRG 641 ==
LOC: ER 13:41 → MEDSURG 14:35
PROVIDERS: Admitting Provider Student in an Organized Health Care Education/Training Program; Emergency Provider Family Medicine; PCP Internal Medicine; Visit Provider Student in an Organized Health Care Education/Training Program
DX: E87.6 Hypokalemia (principal); D69.3 Immune thrombocytopenic purpura; R11.2 Nausea with vomiting, unspecified; R93.2 Abnormal findings on diagnostic imaging of liver and biliary tract; R19.02 Left upper quadrant abdominal swelling, mass and lump; R10.13 Epigastric pain; M32.9 Systemic lupus erythematosus, unspecified; F41.8 Other specified anxiety disorders; M79.7 Fibromyalgia; I10 Essential (primary) hypertension; Z79.52 Long term (current) use of systemic steroids; Z79.899 Other long term (current) drug therapy
CPT/HCPCS: 36415; 71045; 74176; 80053; 83690; 84484; 85025; 93005; 96365; 96375; 99285; C9113; J2405; J2765; J3480; J7030

== ENCOUNTER 2022-11-14 06:03 | Outpatient (CLI) | payer OTHER, SELFPAY ==
--- NOTE | 2022-11-14 | CT_ITS ---
WS: [id number] CT chest w con* [id number] HISTORY: COUGH TECHNIQUE: Axial imaging performed through the thorax. Coronal and sagittal reformats are submitted. All CT scans at [facility] use at least one of these dose optimization techniques: automated exposure control; mA and/or kV adjustment per patient size (includes targeted exams where dose is mat ched to clinical indication); or iterative reconstruction. CONTRAST: Omnipaque 350; 100 mL IV. DLP: 602.04 mGy.cm COMPARISON: Recent CT abdomen and pelvis 11/04/2022 Lungs and central airway: Benign granuloma LEFT upper lobe. No pulmonary mass, nodule or pneumonia. Pleura: Normal. No pleural effusion. Heart and pericardium: Normal size heart with no pericardial effusion. Mediastinum and bonifacio: No mediastinum or hilar adenopathy. Vessels: Normal size aortic and pulmonary artery. No coronary artery calcifications. Chest wall and lower neck: No soft tissue masses. Upper abdomen: There is a large low-attenuation mass with peripheral discontinuous enhancement in the LEFT upper abdomen which abuts the spleen, stomach and liver and diaphragm. Mass measures 7.4 x 10.5 cm and was described on the unenhanced CT of 11/04/2012. I suspect this is likely from the lateral se gment LEFT lobe of the liver. There is displacement of the stomach and pancreas but I do not believe it arises from these organs. There is an additional peripherally enhancing mass in the posterior RIGH T lobe of liver measuring 4.3 x 2.4 cm. Only a portion of the liver is included. No additional abnorm alities. No adrenal mass. Osseous structures: No destructive process. CT/CT chest w con* [id number] IMPRESSION: 1. No pulmonary mass or pneumonia. No adenopathy. 2. Large peripherally enhancing mass LEFT upper quadrant measures 7.4 x 10.5 c m. 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 This will need to be further evaluated. There is an additional hemangioma in the posterior RIGHT lobe of liver which is much sm aller. Recommend follow-up MRI liver with and without contrast and hemangioma p rotocol. Notified Nava Briscoe MD at 11/14/2022 1:11 PM.
[2022-11-14] MEDS: iohexol 350 mg/mL 500 mL Btl (per mL) IV (06:44)
== END 2022-11-14 06:04 | disposition home or self-care (01) ==
PROVIDERS: PCP Internal Medicine; Visit Provider Internal Medicine
DX: R05.9 Cough, unspecified (principal); R19.00 Intra-abdominal and pelvic swelling, mass and lump, unspecified site
CPT/HCPCS: 71260; Q9967

== ENCOUNTER 2023-04-04 06:50 | Emergency (ER) | payer OTHER, SELFPAY ==
[2023-04-04 07:00] VITALS: PULSE 65; RESP 17; TEMP 36.5; O2SAT 100
--- NOTE | 2023-04-04 07:18 | CTR_ITS ---
PROCEDURE INFORMATION: Exam: CT Abdomen And Pelvis With Contrast Exam date and time: 04/04/2023 7:57 AM Age: 53 years old Clinical indication: Nausea and vomiting; Abdominal pain; Generalized; Prior surgery; Surgery date: 6+ months; Surgery type: Benign liver mass removal; Additional info: Abdomaina pain with nausea vomiting diarrhea TECHNIQUE: Imaging protocol: Computed tomography of the abdomen and pelvis with contrast. Contrast material: OMNI 350; Contrast volume: 100 ml; Contrast route: INTRAVENOUS (IV); REPORTING DATA: Count of CT and Cardiac NM exams in prior 12 months: This patient has received 2 known CTs and 0 known cardiac nuclear medicine studies in the 12 months prior to the current study. COMPARISON: CT abdomen pelvis wo con [id number] 11/04/2022 6:30 PM RADIATION DOSE METRICS: Total DLP (mGy-cm): 1077.72 FINDINGS: Diaphragm: Small hiatal hernia. Liver: Focal hypodensity adjacent to the fissure for the ligamentum teres likely represents 3rd inflow phenomenon. Partial left liver resection. Mildly irregular 2.3 cm hypodense subdiaphragmatic liver lesion stable from October 2022 heterogeneous mixed hyperattenuating and hypoattenuating posterior right liver mass measuring 5.0 x 3.1 cm is also similar to prior when allowing for differences in technique, as is more inferior ill-defined 2 cm right posterior liver lesion. Gallbladder and bile ducts: Normal. No calcified stones. No ductal dilation. Pancreas: Normal without ductal dilatation. Spleen: Normal. Adrenal glands: Normal. No mass. Kidneys and ureters: Normal. No hydronephrosis. Stomach and bowel: No dilatation. No evidence of mucosal thickening. Mild colonic diverticulosis without findings of diverticulitis. Appendix: Normal. Intraperitoneal space: Trace free pelvic fluid may be physiologic. No free air or focal well organized fluid collection. Vasculature: Minimal systemic atherosclerotic calcification without abdominal aortic aneurysm. Lymph nodes: No enlarged lymph nodes. Urinary bladder: Urinary bladder is unremarkable. Reproductive: Fibroid uterus. Bones/joints: No acute fracture. Mild degenerative changes along the spine and sacroiliac joints. Soft tissues: Scarring of the upper anterior abdominal wall. Mild body wall edema similar to prior. CT/CT abdomen pelvis w con* [id number] IMPRESSION: 1. No acute findings. 2. Multiple liver lesions stable from October 2022. 3. Fibroid uterus.
--- NOTE | 2023-04-04 07:24 | W.ED.NAVMDI ---
HPI - Nausea/Vomiting/Diarrhea General: Chief complaint: Nausea/Vomiting/Diarrhea Stated complaint: nausea, abd pain Time Seen by Provider: 04/04/23 07:00 History of Present Illness: 53-year-old female presents to the emergency department chief complaint of ongoing nausea vomiting and diarrhea with abdominal pain with cramping has been ongoing for last 2 days. Patient reports a prior surgery back in January for a removal of a liver mass patient reports it was noncancerous patient reports no other abdominal surgeries reports she is told her appendix and gallbladder patient Dors is upper abdominal pain where with persistent significant nausea vomiting diarrhea nonbloody in nature mucousy patient does not any endorse any fevers or chills at home reports generalized weakness fatigue. The patient presents to ER with her present for further evaluation management Associated nausea: Yes Associated symtoms: Reports fatigue, malaise and nausea; Denies anxiety, change in vision, chest pain, headache(s) or palpitations Review of Systems General: Reports: 10 or more systems reviewed and unremarkable except in HPI and below Const: Reports: change in appetite, fatigue and malaise; Denies: fever(s) or chills Eyes: Denies: change in vision or blurry vision Card: Denies: chest pain or palpitations Resp: Denies: dyspnea or productive cough GI: Reports: abdominal pain, nausea, vomiting and diarrhea : Denies: flank pain Musc: Denies: extremity pain or extremity swelling Skin/Breast: Denies: rash or pruritus Neuro: Denies: headache(s) Psych: Denies: anxiety or depression Severo/Lymph: Denies: easy bleeding All/Imm: Denies: urticaria, throat swelling or facial swelling PFSH ED PFSH: Medical History Blurry vision, right eye s/p surgery Depression with anxiety Fibromyalgia High risk medication use Hypertension Idiopathic thrombocytopenia purpura Inflammatory arthritis Meningioma Removed 07/23/2020. Sleep apnea Systemic lupus erythematosus Uterine fibroid Identified on ultrasound in 2009 Surgical History No history of previous surgery S/P brain surgery (08/02/20) Removal meningioma. Performed in [place], [place]. Family History Family/Other Breast cancer maternal aunt Ovarian cancer maternal aunt Thyroid disease maternal aunt Grandfather Hypertension paternal Diabetes paternal Father Hypertension Diabetes Social History Substance/Drug Use: never Physical Exam Const: OTHER: Appears in moderate distress active dry heaving in the room complaining of abdominal pain HENMT: COMMON NORMALS: normocephalic and atraumatic HEAD & SCALP: normocephalic and atraumatic Eye: COMMON NORMALS: Equal, round and reactive pupils present and EOMs intact bilaterally PUPIL: Yes Equal, round and reactive pupils present Neck/C-Spine: COMMON NORMALS: full ROM, supple and no JVD Lymph: LYMPHATIC: no lymphadenopathy noted Chest: COMMONS NORMALS: normal inspection of the chest and normal palpation of entire chest wall Resp: COMMON NORMALS: normal respiratory effort, No retractions and clear to auscultation bilaterally EFFORT & INSPECTION: Yes able to speak in complete sentences and Yes symmetric chest movement AUSCULTATION: clear to auscultation bilaterally Cardio: COMMON NORMALS: no JVD, regular rate and regular rhythm RATE: regular rate and tachycardic RHYTHM: regular rhythm GI: COMMON NORMALS: Normal to inspection, nondistended, normoactive bowel sounds present; negative for Soft to palpation and negative for non-tender (Obvious generalized abdominal tenderness appreciated to palpation located t) INSPECTION: Yes normal to inspection PALPATION: No Soft to palpation : COMMON NORMALS: Yes no CVA tenderness BLADDER/KIDNEY EXAM: Yes no CVA tenderness Back/Pelvis: COMMON NORMALS: no CVA tenderness Extremity: COMMON NORMALS: normal to inspection and full ROM Neuro: COMMON NORMALS: CN's II-XII intact bilaterally, moves all extremities and no focal motor deficits Psych: COMMON NORMALS: mental status grossly normal, Normal thought process present, cooperative and normal affect THOUGHT PROCESS: Normal thought process present Skin: COMMON NORMALS: no rashes or lesions noted GENERAL SKIN EXAM: no rashes or lesions noted Course Vital Signs: Vital signs: Vital Signs Temperature 97.7 F 04/04/23 07:00 Pulse Rate 59 L 04/04/23 09:30 Respiratory Rate 17 04/04/23 07:00 Blood Pressure 168/76 04/04/23 09:30 Pulse Oximetry 100 04/04/23 09:30 Oxygen Delivery Me thod Room Air 04/04/23 08:05 MDM - Nausea/Vomiting/Diarrhea Medical Decision Making Due to the patient's symptoms and condition IV established IV fluids provided for hydration lab work imaging obtained medication was provided for the patient's associated cramps and nausea and pain we will continue to follow. Lab work and imaging does reveal the patient has some mild hypokalemia otherwise no acute process noted on the patient's CT scan patient will be subsequent discharged home she was able to tolerate p.o. intake prior to subsequent discharge advised further follow-up with primary care in 2 to 3 days in which the patient was advised return the interim if any of her symptoms persist or worse. Lab Data 04/04/23 07:15 04/04/23 07:15 Radiology Impressions Abdomen/Pelvis CT 04/04/23 07:18 IMPRESSION: 1. No acute findings. 2. Multiple liver lesions stable from October 2022. 3. Fibroid uterus. Laboratory Results WBC 13.2 10^3/uL (4.0-10.0) H 04/04/23 07:15 RBC 5.44 10^6/uL (4.1-5.3) H 04/04/23 07:15 Hgb 13.0 g/dL (11.5-15.3) 04/04/23 07:15 Hct 42.5 % (37.0-47.0) 04/04/23 07:15 MCV 78.1 fl (81-99) L 04/04/23 07:15 MCH 23.9 pg (28.0-34.0) L 04/04/23 07:15 MCHC 30.6 g/dL (30.0-36.0) 04/04/23 07:15 RDW 14.7 % (12.1-15.1) 04/04/23 07:15 Plt Count 164 10^3/cmm (130-400) 04/04/23 07:15 MPV 11.6 fL (7.4-10.4) H 04/04/23 07:15 Neut % (Auto) 84.4 % 04/04/23 07:15 Lymph % (Auto) 8.1 % 04/04/23 07:15 [place] % (Auto) 6.4 % 04/04/23 07:15 Eos % (Auto) 0.1 % 04/04/23 07:15 Baso % (Auto) 0.5 % 04/04/23 07:15 Neut # (Auto) 11.13 10^3/uL (1.8-7.7) H 04/04/23 07:15 Lymph # (Auto) 1.1 10^3/uL (0.8-4.8) 04/04/23 07:15 [place] # (Auto) 0.9 10^3/uL (0.2-0.9) 04/04/23 07:15 Eos # (Auto) 0.0 10^3/uL (0.0-0.8) 04/04/23 07:15 Baso # (Auto) 0.1 10^3/uL (0.0-0.1) 04/04/23 07:15 Nucleated RBC % (auto) 0 % 04/04/23 07:15 Nucleated RBCs # 0.0 /100WBC 04/04/23 07:15 Sodium 140 mmol/L (136-145) 04/04/23 07:15 Potassium 2.5 mmol/L (3.5-5.1) L* 04/04/23 07:15 Chloride 101 mmol/L (98-107) 04/04/23 07:15 Carbon Dioxide 20 mmol/L (22-29) L 04/04/23 07:15 Anion Gap 21.5 (5-19) H 04/04/23 07:15 BUN 8 mg/dL (6-20) 04/04/23 07:15 Creatinine 0.5 mg/dL (0.5-0.9) 04/04/23 07:15 GFR Calculation 129.6 mL/min (90-130) 04/04/23 07:15 Glucose 179 mg/dL (65-115) H 04/04/23 07:15 Calculated Osmolality 293 mOsm/kg (285-295) 04/04/23 07:15 Calcium 9.2 mg/dL (8.5-10.5) 04/04/23 07:15 Total Bilirubin 0.5 mg/dL (0.15-1.2) 04/04/23 07:15 AST 12 U/L (0-32) 04/04/23 07:15 ALT 12 U/L (0-33) 04/04/23 07:15 Alkaline Phosphatase 97 U/L (35-105) 04/04/23 07:15 C-Reactive Protein 13.4 mg/L (0.0-4.9) H 04/04/23 07:15 Total Protein 7.8 g/dL (6.6-8.7) 04/04/23 07:15 Albumin 4.6 g/dL (3.5-5.2) 04/04/23 07:15 Globulin 3.2 g/dL (1.3-4.6) 04/04/23 07:15 Lipase 17 U/L (13-60) 04/04/23 07:15 Urine Color Straw (Yellow) 04/04/23 07:15 Urine Appearance Clear (CLEAR) 04/04/23 07:15 Urine pH 9 (5-7) H 04/04/23 07:15 Ur Specific [place] 1.010 (1.005-1.030) 04/04/23 07:15 Urine Protein Neg (Negative) 04/04/23 07:15 Urine Glucose (UA) 1+ (Normal) H 04/04/23 07:15 Urine Ketones 1+ (Negative) H 04/04/23 07:15 Urine Blood Neg (Negative) 04/04/23 07:15 Urine Nitrate Negative (Negative) 04/04/23 07:15 Urine Bilirubin Neg (Negative) 04/04/23 07:15 Prot Sulfosalicylic Acd Negative (Negative) 04/04/23 07:15 Urine Urobilinogen Norm mg/dL (Negative) 04/04/23 07:15 Ur Leukocyte Esterase Negative (Negative) 04/04/23 07:15 Urine Opiates Screen Negative ng/mL (Negative) 04/04/23 07:15 Ur Barbiturates Screen Negative ng/mL (Negative) 04/04/23 07:15 Ur Phencyclidine Scrn Negative ng/mL (Negative) 04/04/23 07:15 Ur Amphetamines Screen Negative ng/mL (Negative) 04/04/23 07:15 U Benzodiazepines Scrn Negative ng/mL (Negative) 04/04/23 07:15 Urine Cocaine Screen Negative ng/mL (Negative) 04/04/23 07:15 U Marijuana (THC) Screen Positive ng/mL (Negative) H 04/04/23 07:15 Discharge Plan Discharge Patient Disposition: Home Clinical Impression: Gastroenteritis, Acute hypokalemia, Nausea vomiting and diarrhea, Dehydration Condition: Stable Prescriptions: New ondansetron 4 mg tablet,disintegrating 4 mg PO TID PRN (Reason: nausea and vomiting) Qty: 20 0RF Lomotil 2.5-0.025 mg tablet 1 tab PO Q12H PRN (Reason: diarrhea) Qty: 10 0RF Protonix 40 mg tablet,delayed release (DR/EC) 40 mg PO DAILY Qty: 10 0RF potassium chloride 20 mEq packet 20 meq PO DAILY Qty: 5 0RF No Action bumetanide 1 mg tablet 1 mg PO BID lisinopril 40 mg tablet 40 mg PO QAM alprazolam 0.5 mg tablet 0.25 mg PO Q6H PRN (Reason: anxiety) paroxetine HCl [Paxil] 40 mg tablet 40 mg PO QAM cholecalciferol (vitamin D3) 50 mcg (2,000 unit) capsule 50 mcg PO DAILY Qty: 90 1RF hydroxychloroquine 200 mg tablet 200 mg PO BID Qty: 180 1RF prednisone 20 mg tablet See Rx Instructions PO .COMPLEX PRN (Reason: joint pain flare) Qty: 30 1RF Rx Instructions: take 1 or 2 tab daily for up to 7 days as needed for arthritis flare amlodipine 10 mg tablet 10 mg PO QAM ondansetron 4 mg tablet,disintegrating 4 mg PO Q6H PRN (Reason: Nausea And Vomiting) Tylenol Ex Str Rapid Release 500 mg Tablet 1,000 mg PO Q6H PRN (Reason: Pain) potassium chloride 20 mEq tablet,ER particles/crystals 20 meq PO QAM prednisone 5 mg tablet 5 mg PO QAM leflunomide 20 mg tablet 20 mg PO QAM Discharge Orders: Discharge ED (Routine); Ordered 04/04/23 Ordered By: Rosalino Lee Referrals: Nava Briscoe MD [Primary Care Provider] - 1-3 days Discharge Diet: Advance as tolerated Discharge Activity: Increase activity as tolerated Patient Instructions: Dehydration (ED), Hypokalemia (ED), Gastroenteritis (ED), Acute Nausea and Vomiting (ED), Acute Nausea and Vomiting (DC) Activity Restrictions/Additional Instructions: Please further follow-up with your primary care doctor in 2 to 3 days, please take medications as prescribed please adhere to a clear liquid diet to advance his toleration and please return in the interim if any of your symptoms persist or worse. Coding Level of Care Code ED Seamless Tube Drawer for Nico Smith
[2023-04-04] MEDS: ondansetron 2 mg/ML SDV 2 mL 4 MG IVP (07:29)
[2023-04-04 07:30] LABS: Add Urine Microscopic? NO; Charge for UA Resulting for Rev
[2023-04-04] MEDS: dicyclomine 20 mg Tablet PO (07:31)
[2023-04-04] MEDS: pantoprazole 40 mg SDV IVP (07:31)
[2023-04-04 07:32] LABS: Basophils # 0.1 10^3/uL (0.0-0.1); Basophils % 0.5 %; Eosinophils % 0.1 %; Hematocrit 42.5 % (37.0-47.0); Lymphocytes # 1.1 10^3/uL (0.8-4.8); Lymphocytes % 8.1 %; Mean Corpuscular HGB Conc 30.6 g/dL (30.0-36.0); Mean Corpuscular Hemoglobin 23.9 pg (28.0-34.0); Mean Corpuscular Volume 78.1 fl (81-99); Mean Platelet Volume 11.6 fL (7.4-10.4); Monocytes # 0.9 10^3/uL (0.2-0.9); Monocytes % 6.4 %; Neutrophils # 11.13 10^3/uL (1.8-7.7); Neutrophils % 84.4 %; Nucleated Red Blood Cells % 0 %; Platelet Count 164 10^3/cmm (130-400); Red Blood Count 5.44 10^6/uL (4.1-5.3); Red Cell Distribution Width 14.7 % (12.1-15.1); White Blood Count 13.2 10^3/uL (4.0-10.0)
[2023-04-04] MEDS: sodium chloride 0.9% 1,000 ML 999 ML IV (07:33)
[2023-04-04 07:35] VITALS: BP 162/92; PULSE 64; O2SAT 100
[2023-04-04 07:46] LABS: Urine Appearance Clear (CLEAR); Urine Color Straw (Yellow); pH Urine 9 (5-7)
[2023-04-04 07:49] LABS: Glucose Urine UA 1+ (Normal); Ketones Urine 1+ (Negative); Protein Urine Neg (Negative)
[2023-04-04 07:50] LABS: Amphetamines Screen Urine Negative (Negative); Barbiturates Screen Urine Negative (Negative); Benzodiazepines Screen Urine Negative (Negative); Bilirubin Urine Neg (Negative); Blood Urine Neg (Negative); Cocaine Screen Urine Negative (Negative); Nitrate Urine Negative (Negative); Opiate Screen Urine Negative (Negative); PCP Screen Urine Negative (Negative); Sulfosalicylic Acid Urine Negative (Negative); THC Screen Urine Positive (Negative); Urobilinogen Urine Norm (Negative)
[2023-04-04 07:51] LABS: Leukocyte Esterase Urine Negative (Negative)
[2023-04-04 07:57] LABS: Alanine Aminotransferase 12 U/L (0-33); Albumin Level 4.6 g/dL (3.5-5.2); Alkaline Phosphatase 97 U/L (35-105); Anion Gap 21.5 (5-19); Aspartate Amino Transferase 12 U/L (0-32); Blood Urea Nitrogen 8 mg/dL (6-20); C Reactive Protein 13.4 mg/L (0.0-4.9); Calcium 9.2 mg/dL (8.5-10.5); Carbon Dioxide 20 mmol/L (22-29); Chloride 101 mmol/L (98-107); Globulin 3.2 g/dL (1.3-4.6); Glomerular Filtration Rate 129.6 mL/min (90-130); Glucose 179 mg/dL (65-115); Lipase 17 U/L (13-60); Osmolality Calculated 293 mOsm/kg (285-295); Sodium 140 mmol/L (136-145); Total Bilirubin 0.5 mg/dL (0.15-1.2); Total Protein 7.8 g/dL (6.6-8.7)
[2023-04-04] MEDS: iohexol 350 mg/mL 500 mL Btl (per mL) IV (08:01)
[2023-04-04 08:05] VITALS: BP 161/81; PULSE 59; O2SAT 99
[2023-04-04 08:05] LABS: Potassium 2.5 mmol/L (3.5-5.1)
[2023-04-04 08:30] VITALS: BP 171/89; PULSE 57; O2SAT 99
[2023-04-04] MEDS: potassium chloride premix 100 ML 50 MEQ IV (08:35)
[2023-04-04 09:30] VITALS: BP 168/76; PULSE 59; O2SAT 100
[2023-04-04 10:45] VITALS: BP 187/103; PULSE 60; O2SAT 100
== END 2023-04-04 10:46 | disposition home or self-care (01) ==
PROVIDERS: Emergency Provider Emergency Medicine; PCP Internal Medicine
DX: K52.9 Noninfective gastroenteritis and colitis, unspecified (principal); E87.6 Hypokalemia; E86.0 Dehydration; I10 Essential (primary) hypertension; M32.9 Systemic lupus erythematosus, unspecified
CPT/HCPCS: 74177; 80053; 80306; 81003; 83690; 85025; 86140; 96361; 96365; 96366; 96375; 99285; C9113; J2405; J3480; J7030; Q9967

== ENCOUNTER → 2023-05-20 15:54 | Outpatient (BNVA) | payer OTHER, SELFPAY | PROVIDERS: PCP Internal Medicine; Visit Provider Internal Medicine Rheumatology | DX: R11.2 Nausea with vomiting, unspecified (principal); M19.90 Unspecified osteoarthritis, unspecified site; Z79.899 Other long term (current) drug therapy; M32.9 Systemic lupus erythematosus, unspecified; M54.2 Cervicalgia; M32.19 Other organ or system involvement in systemic lupus erythematosus; M79.7 Fibromyalgia | CPT/HCPCS: 36415; 80076; 82565; 83735; 84132; 85025; 86036; 86140 ==

== ENCOUNTER 2023-05-21 07:22 | Outpatient (CLI) | payer OTHER, SELFPAY ==
--- NOTE | 2023-05-21 07:42 | XR_ITS ---
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 Vertebral body heights and intervertebral disc sp aces are maintained except for mild narrowing of C5-6. The cervical bony alignment and osseous densi ties appear normal. There is no prevertebral soft tissue change. IMPRESSION: No acute osseous abnormality.
== END 2023-05-21 07:23 | disposition home or self-care (01) ==
PROVIDERS: PCP Internal Medicine; Visit Provider Internal Medicine Rheumatology
DX: M19.90 Unspecified osteoarthritis, unspecified site (principal); M54.2 Cervicalgia; Z79.899 Other long term (current) drug therapy
CPT/HCPCS: 72040

== ENCOUNTER 2023-06-05 17:39 | Emergency (ER) | payer OTHER, SELFPAY ==
--- NOTE | 2023-06-05 17:46 | ECG_ITS ---
[facility] Test Date: 2023-06-05 Pat Name: Neha Baumann Department: Room: Gender: Female Paradi Tender: : 1970 Requested By: Parminder Garrido Order Number: [id number] Nancy MD: James Cabrera M.D. Measurements Intervals [place] Rate: 72 P: 51 MA: 151 QRS: -13 QRSD: 100 T: 30 QT: 407 QTc: 446 Interpretive Statements SINUS RHYTHM WITH SINUS ARRHYTHMIA POSSIBLE ANTERIOR MYOCARDIAL INFARCTION , PROBABLY OLD [30 ms Q WAVE IN V3/V4, OR R < 0.2 mV IN V4] Compared to ECG 11/04/2022 13:04:58 No significant changes Electronically Signed On 06-05-2023 23:07:50 CDT by James Cabrera M.D. [email or web address] [id number]
[2023-06-05 17:49] VITALS: BP 142/87; PULSE 67; RESP 18; TEMP 36.3; O2SAT 98; BMI 44.6
[2023-06-05 18:23] LABS: Basophils # 0.1 10^3/uL (0.0-0.1); Basophils % 0.6 %; Eosinophils # 0.1 10^3/uL (0.0-0.8); Hematocrit 41.1 % (36-47); Lymphocytes # 1.4 10^3/uL (0.8-4.8); Lymphocytes % 15.4 %; Mean Corpuscular HGB Conc 30.7 g/dL (30-55); Mean Corpuscular Hemoglobin 24.7 pg (27-33); Mean Corpuscular Volume 80.6 fl (85-98); Mean Platelet Volume 11.8 fL (7.4-10.4); Monocytes # 0.5 10^3/uL (0.2-0.9); Monocytes % 5.8 %; Neutrophils # 6.79 10^3/uL (1.8-7.7); Neutrophils % 76.7 %; Nucleated Red Blood Cells % 0 %; Platelet Count 134 10^3/cmm (157-399); Red Cell Distribution Width 17.8 % (12.1-15.1); White Blood Count 8.84 10^3/uL (3.29-11.43)
--- NOTE | 2023-06-05 18:23 | ED_ITS ---
HPI - Chest Pain General: Chief Complaint: Chest Pain Stated Complaint: chest pain, low pot Time Seen by Provider: 06/05/23 18:23 History of Present Illness: 53-year-old female comes in today with complaints of chest discomfort, nausea, and anxiety. Patient appears nontoxic. Patient appears anxious. Patient appears in no pain. Patient has a history of lupus, fibromyalgia, GERD, hypertension, depression with anxiety. Patient admits to taking 1/2 mg of Xanax prior to coming to the ER. Patient does report some improvement of symptoms. Patient had been notified by her primary care office that her potassium was low and patient does have a history of prior hypokalemia with symptoms such as this. Associated symptoms: Reports dyspnea and nausea; Deny fever(s) or vomiting Review of Systems Const: Denies: fever(s) Card: Reports: chest pain Resp: Reports: dyspnea GI: Reports: nausea; Denies: vomiting, diarrhea or constipation : Denies: difficulty voiding Musc: Denies: back pain Skin/Breast: Denies: rash PFSH ED PFSH: Medical History Blurry vision, right eye s/p surgery Depression with anxiety Fibromyalgia High risk medication use Hypertension Idiopathic thrombocytopenia purpura Inflammatory arthritis Meningioma Removed 07/23/2020. Sleep apnea Systemic lupus erythematosus Uterine fibroid Identified on ultrasound in 2009 Surgical History No history of previous surgery S/P brain surgery (08/02/20) Removal meningioma. Performed in [place], [place]. Family History Family/Other Breast cancer maternal aunt Ovarian cancer maternal aunt Thyroid disease maternal aunt Grandfather Hypertension paternal Diabetes paternal Father Hypertension Diabetes Social History Substance/Drug Use: never Physical Exam Const: COMMON NORMALS: alert HENMT: COMMON NORMALS: normocephalic HEAD & SCALP: normocephalic Neck/C-Spine: COMMON NORMALS: full ROM Resp: COMMON NORMALS: normal respiratory effort and clear to auscultation b ilaterally AUSCULTATION: clear to auscultation bilaterally Cardio: COMMON NORMALS: regular rate and regular rhythm RATE: regular rate RHYTHM: regular rhythm GI: COMMON NORMALS: non-tender : COMMON NORMALS: Yes no CVA tenderness BLADDER/KIDNEY EXAM: Yes no CVA tenderness Back/Pelvis: COMMON NORMALS: no CVA tenderness and thoracic and lumbar spine normal to inspection Extremity: COMMON NORMALS: no pedal edema Neuro: SENSORIUM/ORIENTATION: Yes alert Skin: COMMON NORMALS: turgor normal GENERAL SKIN EXAM: turgor normal Course Vital Signs: Vital signs: Vital Signs Temperature 97.4 F L 06/05/23 17:49 Pulse Rate 67 06/05/23 17:49 Respiratory Rate 18 06/05/23 17:49 Blood Pressure 142/87 06/05/23 17:49 Pulse Oximetry 98 06/05/23 17:49 Oxygen Delivery Me thod Room Air 06/05/23 17:49 MDM - Chest Pain Medical Decision Making 53-year-old female comes in today with chest pressure, anxiety, and shortness of breath. On exam patient appears nontoxic. Patient appears in mild pain. Heart rates regular. Abdomen soft nontender. Skin is warm and dry. Vital signs are normal. No edema is noted in the extremities. Differential diagnosis includes hypokalemia, anxiety, ACS, CHF. Potassium was a little low at 3.3. Baseline and 2-hour troponin were unchanged. Chest x-ray was normal. No changes were noted on EKG. Believe patient's symptoms were probably secondary to her hypokalemia and anxiety. Patient was given 40 mEq of potassium in the ER she had already taken medicine earlier in the day for her potassium. She should continue with her routine care. And follow-up with primary care for further instructions. Patient stated understanding and agreed to plan. Lab Data 06/05/23 18:12 06/05/23 18:12 Radiology Impressions Chest X-Ray 06/05/23 18:40 IMPRESSION: 1. Bibasilar atelectasis versus minimal infiltrate 2. Cardiomegaly. Laboratory Results WBC 8.84 10^3/uL (3.29-11.43) 06/05/23 18:12 RBC 5.10 10^6/uL (3.85-5.65) 06/05/23 18:12 Hgb 12.60 g/dL (11.27-16.99) 06/05/23 18:12 Hct 41.1 % (36-47) 06/05/23 18:12 MCV 80.6 fl (85-98) L 06/05/23 18:12 MCH 24.7 pg (27-33) L 06/05/23 18:12 MCHC 30.7 g/dL (30-55) 06/05/23 18:12 RDW 17.8 % (12.1-15.1) H 06/05/23 18:12 Plt Count 134 10^3/cmm (157-399) L 06/05/23 18:12 MPV 11.8 fL (7.4-10.4) H 06/05/23 18:12 Neut % (Auto) 76.7 % 06/05/23 18:12 Lymph % (Auto) 15.4 % 06/05/23 18:12 [place] % (Auto) 5.8 % 06/05/23 18:12 Eos % (Auto) 1.0 % 06/05/23 18:12 Baso % (Auto) 0.6 % 06/05/23 18:12 Neut # (Auto) 6.79 10^3/uL (1.8-7.7) 06/05/23 18:12 Lymph # (Auto) 1.4 10^3/uL (0.8-4.8) 06/05/23 18:12 [place] # (Auto) 0.5 10^3/uL (0.2-0.9) 06/05/23 18:12 Eos # (Auto) 0.1 10^3/uL (0.0-0.8) 06/05/23 18:12 Baso # (Auto) 0.1 10^3/uL (0.0-0.1) 06/05/23 18:12 Nucleated RBC % (auto) 0 % 06/05/23 18:12 Nucleated RBCs # 0.0 /100WBC 06/05/23 18:12 Sodium 140 mmol/L (136-145) 06/05/23 18:12 Potassium 3.3 mmol/L (3.5-5.1) L 06/05/23 18:12 Chloride 102 mmol/L (98-107) 06/05/23 18:12 Carbon Dioxide 23 mmol/L (22-29) 06/05/23 18:12 Anion Gap 18.3 (5-19) 06/05/23 18:12 BUN 12 mg/dL (6-20) 06/05/23 18:12 Creatinine 0.5 mg/dL (0.5-0.9) 06/05/23 18:12 GFR Calculation 129.6 mL/min (90-130) 06/05/23 18:12 Glucose 214 mg/dL (65-115) H 06/05/23 18:12 Calculated Osmolality 296 mOsm/kg (285-295) H 06/05/23 18:12 Calcium 9.3 mg/dL (8.5-10.5) 06/05/23 18:12 Total Bilirubin 0.4 mg/dL (0.15-1.2) 06/05/23 18:12 AST 12 U/L (0-32) 06/05/23 18:12 ALT 11 U/L (0-33) 06/05/23 18:12 Alkaline Phosphatase 84 U/L (35-105) 06/05/23 18:12 Troponin T Baseline < 6 ng/L (0-10) 06/05/23 18:12 Troponin T 120 Minute 6.87 ng/L (0-10) 06/05/23 20:03 Delta Troponin T 0.12961 ABS# (0-10) 06/05/23 20:03 NT-Pro-B Natriuret Pep 120 pg/mL (0-125) 06/05/23 18:12 Total Protein 6.6 g/dL (6.6-8.7) 06/05/23 18:12 Albumin 4.1 g/dL (3.5-5.2) 06/05/23 18:12 Globulin 2.5 g/dL (1.3-4.6) 06/05/23 18:12 All radiology interpretation(s) finalized by discharge Discharge Plan Discharge Patient Disposition: Home Clinical Impression: Hypokalemia, Atypical chest pain Condition: Stable Prescriptions: No Action bumetanide 1 mg tablet 1 mg PO BID lisinopril 40 mg tablet 40 mg PO QAM alprazolam 0.5 mg tablet 0.25 mg PO Q6H PRN (Reason: anxiety) paroxetine HCl [Paxil] 40 mg tablet 40 mg PO QAM cholecalciferol (vitamin D3) 50 mcg (2,000 unit) capsule 50 mcg PO DAILY Qty: 90 1RF hydroxychloroquine 200 mg tablet 200 mg PO BID Qty: 180 1RF prednisone 20 mg tablet See Rx Instructions PO .COMPLEX PRN (Reason: joint pain flare) Qty: 30 1RF Rx Instructions: take 1 or 2 tab daily for up to 7 days as needed for arthritis flare sulfasalazine 500 mg tablet 0.5 g PO BID Qty: 60 3RF Rx Instructions: Take 1 tab daily x1wk then stay on 1 tab twice daily.... give with food (meal/snack) amlodipine 10 mg tablet 10 mg PO QAM ondansetron 4 mg tablet,disintegrating 4 mg PO Q6H PRN (Reason: Nausea And Vomiting) Tylenol Ex Str Rapid Release 500 mg Tablet 1,000 mg PO Q6H PRN (Reason: Pain) potassium chloride 20 mEq tablet,ER particles/crystals 20 meq PO QAM prednisone 5 mg tablet 5 mg PO QAM leflunomide 20 mg tablet 20 mg PO QAM ondansetron 4 mg tablet,disintegrating 4 mg PO TID PRN (Reason: nausea and vomiting) Qty: 20 0RF Protonix 40 mg tablet,delayed release (DR/EC) 40 mg PO DAILY Qty: 10 0RF potassium chloride 20 mEq packet 20 meq PO DAILY Qty: 5 0RF Discharge Orders: Discharge ED (Routine); Ordered 06/05/23 Ordered By: Parminder Zhong Referrals: Nava Briscoe MD [Primary Care Provider] - Discharge Diet: Usual diet Discharge Activity: Increase activity as tolerated Patient Instructions: Hypokalemia (ED) Activity Restrictions/Additional Instructions: Continue with routine medications as directed. Drink plenty of water and fluids. Follow-up with primary care for further instructions. Return to ED for new concerns. Coding Level of Care Code ED Finance And Administration Manager for Nico Smith
[2023-06-05 18:40] LABS: Troponin(5th) Baseline < 6 ng/L (0-10)
--- NOTE | 2023-06-05 18:40 | XRR_ITS ---
PROCEDURE INFORMATION: Exam: XR Chest Exam date and time: 06/05/2023 7:00 PM Age: 53 years old Clinical indication: Dyspnea; Chest wall pain; Additional info: Chest pain, short of breath TECHNIQUE: Imaging protocol: Radiologic exam of the chest. Views: 1 view. COMPARISON: CT chest w con* [id number] 11/14/2022 6:26 AM FINDINGS: Lungs: Bibasilar atelectasis versus minimal infiltrate Pleural spaces: Unremarkable. No pleural effusion. No pneumothorax. Heart/Mediastinum: Cardiomegaly. Bones/joints: Unremarkable. XR/XR chest 1V portable [id number] IMPRESSION: 1. Bibasilar atelectasis versus minimal infiltrate 2. Cardiomegaly.
[2023-06-05 18:57] LABS: Alanine Aminotransferase 11 U/L (0-33); Albumin Level 4.1 g/dL (3.5-5.2); Alkaline Phosphatase 84 U/L (35-105); Anion Gap 18.3 (5-19); Aspartate Amino Transferase 12 U/L (0-32); Blood Urea Nitrogen 12 mg/dL (6-20); Calcium 9.3 mg/dL (8.5-10.5); Carbon Dioxide 23 mmol/L (22-29); Chloride 102 mmol/L (98-107); Creatinine Clr Calc Pharmacy 148.5594; Globulin 2.5 g/dL (1.3-4.6); Glomerular Filtration Rate 129.6 mL/min (90-130); Glucose 214 mg/dL (65-115); NT Pro B Type Natriuretic Pept 120 pg/mL (0-125); Osmolality Calculated 296 mOsm/kg (285-295); Potassium 3.3 mmol/L (3.5-5.1); Sodium 140 mmol/L (136-145); Total Bilirubin 0.4 mg/dL (0.15-1.2); Total Protein 6.6 g/dL (6.6-8.7)
[2023-06-05 19:33] LABS: Slide Review Slide Review Perform
[2023-06-05] MEDS: potassium chloride oral liq 20 mEq/15 mL UDC 40 MEQ PO (19:55)
[2023-06-05 20:35] LABS: Troponin 5 2HR 6.87 ng/L (0-10); Troponin 5 2HR Delta 0.87001 ABS# (0-10)
[2023-06-05 20:53] VITALS: BP 133/97; PULSE 66; RESP 16; O2SAT 94
--- NOTE | 2023-06-05 20:57 | ECG_ITS ---
[facility] Test Date: 2023-06-05 Pat Name: Neha Baumann Department: Room: Gender: Female Special Service Officer: : 1970 Requested By: Parminder Garrido Order Number: [id number] Nancy MD: James Cabrera M.D. Measurements Intervals [place] Rate: 56 P: 11 [place]: 167 QRS: 0 QRSD: 94 T: 39 QT: 434 QTc: 420 Interpretive Statements SINUS BRADYCARDIA WITH SINUS ARRHYTHMIA POSSIBLE ANTERIOR MYOCARDIAL INFARCTION , OF INDETERMINATE AGE [30 ms Q WAVE IN V3/V4, OR R < 0.2 mV IN V4] Compared to ECG 06/05/2023 17:46:21 Sinus rhythm no longer present Myocardial infarct finding still present Electronically Signed On 06-05-2023 23:09:52 CDT by James Cabrera M.D. [id number]
[2023-06-05 21:11] VITALS: BP 146/77; PULSE 55; RESP 21; O2SAT 92
== END 2023-06-05 20:15 | disposition home or self-care (01) ==
PROVIDERS: Emergency Provider Nurse Practitioner Family; PCP Internal Medicine
DX: E87.6 Hypokalemia (principal); R07.89 Other chest pain; I10 Essential (primary) hypertension; M32.9 Systemic lupus erythematosus, unspecified
CPT/HCPCS: 36415; 71045; 80053; 83880; 84484; 85025; 93005; 99285

== ENCOUNTER 2023-07-02 10:05 | Outpatient (CLI) | payer OTHER, SELFPAY ==
--- NOTE | 2023-07-02 10:11 | USCV_ITS ---
Neha Baumann Age: 53 Gender: F : 1970 Exam Date: 07/02/2023 10:30 Ordering Phys: Nava Briscoe MD Technologist: LOYD Exam Location: [facility] [place] Indication: MR BP: 133 / 70 HR: 62 Rhythm: Sinus Technical Quality: Adequate MEASUREMENTS (Male / Female) Normal Values 2D ECHO LVOT Diameter 2.0 cm LV Ejection Fraction MOD 2C 59.5 % LV Ejection Fraction 2C AL 58.7 % LA Diameter 3.0 cm LA Width 3.5 cm LA Height 4.6 cm RA Width 3.4 cm RA Height 4.8 cm Aorta at Sinotubular Diameter 2.6 cm IVC Diameter 1.8 cm M-MODE Aortic Annulus Diameter 2.9 cm LA Ao Ratio MM 0.9 MV E Point Septal Separation 0.4 cm DOPPLER AV Peak Velocity 149.0 cm/s LVOT Peak Velocity 143.0 cm/s AV Area Cont Eq vti 3.4 cm squared AV Area Cont Eq pk 3.1 cm squared MV Peak Velocity 109.0 cm/s MV Area PHT 3.5 cm squared Mitral E to A Ratio 1.0 MV E' Velocity 54.0 cm/s Mitral E to MV E' Ratio 7.9 Mitral E to LV E' Lateral Ratio 9.7 Mitral E to LV E' Septal Ratio 6.7 TR Peak Velocity 166.0 cm/s TR Peak Gradient 11.0 mmHg TR Mean Velocity 127.7 cm/s TR Mean Gradient 7.2 mmHg TR Velocity Time Integral 48.4 cm TV Peak E Velocity 62.0 cm/s Right Atrial Pressure 3.0 mmHg Pulmonary Artery Systolic Pressu 14.0 mmHg PV Peak Velocity 125.0 cm/s RV Acceleration Time 0.1 s RV Ejection Time 0.3 s RV AcT/ET 0.2 FINDINGS Left Ventricle Normal left ventricular size, systolic function and wall thickness, with no regional wall motion abnormalities. Left ventricular ejection fraction is estimated at 60 %. Normal diastolic function. Right Ventricle Normal right ventricular size and systolic function. Normal right ventricular systolic pressure. Right Atrium The right atrium is normal in size. Left Atrium The left atrium is normal in size. Mitral Valve Structurally normal mitral valve. Trace mitral valve regurgitation. Aortic Valve Structurally normal aortic valve without significant sclerosis or stenosis. There is no aortic regurgitation. Tricuspid Valve Structurally normal tricuspid valve. No tricuspid valve regurgitation. Pulmonic Valve Pulmonic valve not well visualized. Pericardium Normal pericardium without effusion. Aorta Normal ascending aorta dimension. IVC The inferior vena cava appears normal. CONCLUSIONS Normal left ventricular size, systolic function and wall thickness, with no regional wall motion abnormalities. Left ventricular ejection fraction is estimated at 60 %. Normal diastolic function. Structurally normal mitral valve. Trace mitral valve regurgitation. The previous echo was performed August 27 of this year. There has been no change. Dr. Filiberto Rollins MD (Electronically Signed) Final Date: 02 July 2023 15:13 S
== END 2023-07-02 10:06 | disposition home or self-care (01) ==
LOC: RAD 10:05
PROVIDERS: PCP Internal Medicine; Visit Provider Internal Medicine
DX: I34.0 Nonrheumatic mitral (valve) insufficiency (principal)
CPT/HCPCS: 93306

== ENCOUNTER 2023-08-03 18:20 | Emergency (ER) | payer OTHER, SELFPAY ==
[2023-08-03 18:54] LABS: Basophils % 0.1 %; Hematocrit 43.7 % (36-47); Lymphocytes # 1.3 10^3/uL (0.8-4.8); Lymphocytes % 8.8 %; Mean Corpuscular HGB Conc 31.6 g/dL (30-55); Mean Corpuscular Hemoglobin 25.8 pg (27-33); Mean Corpuscular Volume 81.8 fl (85-98); Monocytes # 0.8 10^3/uL (0.2-0.9); Monocytes % 5.2 %; Neutrophils # 12.86 10^3/uL (1.8-7.7); Neutrophils % 85.4 %; Nucleated Red Blood Cells % 0 %; Platelet Count 212 10^3/cmm (157-399); Red Blood Count 5.34 10^6/uL (3.85-5.65); Red Cell Distribution Width 16.3 % (12.1-15.1); White Blood Count 15.07 10^3/uL (3.29-11.43)
[2023-08-03 19:00] VITALS: BP 191/99; PULSE 75; RESP 17; TEMP 36.8; O2SAT 98; BMI 43.4
--- NOTE | 2023-08-03 19:05 | ECG_ITS ---
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 Measurements Intervals [place] Rate: 76 P: -89 VT: 95 QRS: -24 QRSD: 99 T: 15 QT: 409 QTc: 461 Interpretive Statements JUNCTIONAL RHYTHM INFERIOR MYOCARDIAL INFARCTION , PROBABLY OLD [40+ ms Q WAVE AND/OR ST/T ABNORMALITY IN II/aVF] Compared to ECG 06/05/2023 20:57:31 Junctional rhythm now present Sinus bradycardia no longer present Sinus arrhythmia no longer present Myocardial infarct finding still present Electronically Signed On 08-04-2023 14:38:58 ELECTRONICS TECHNOLOGY DEPARTMENT CHAIR by Filiberto Rollins M.D. [id number]
[2023-08-03 19:15] LABS: Alanine Aminotransferase 13 U/L (0-33); Albumin Level 4.1 g/dL (3.5-5.2); Alkaline Phosphatase 97 U/L (35-105); Aspartate Amino Transferase 13 U/L (0-32); Blood Urea Nitrogen 11 mg/dL (6-20); Calcium 9.2 mg/dL (8.5-10.5); Carbon Dioxide 22 mmol/L (22-29); Chloride 99 mmol/L (98-107); Globulin 3.3 g/dL (1.3-4.6); Glucose 150 mg/dL (65-115); Lipase 19 U/L (13-60); Osmolality Calculated 288 mOsm/kg (285-295); Sodium 138 mmol/L (136-145); Total Bilirubin 0.8 mg/dL (0.15-1.2); Total Protein 7.4 g/dL (6.6-8.7)
--- NOTE | 2023-08-03 19:57 | ED_ITS ---
HPI - Nausea/Vomiting/Diarrhea 2 General: Chief complaint: Nausea/Vomiting/Diarrhea Stated complaint: n/v/d Time Seen by Provider: 08/03/23 19:21 Source: patient Mode of arrival: ambulatory Limitations: no limitations History of Present Illness: 53-year-old female states she had some a bdominal cramping along with nausea vomiting diarrhea since last night. States she had some tingling in her fingers and was concerned because she has been hypokalemic in the past 1 to make sure her potassium was normal. She denies any severe pain denies any fevers denies any worsening proving factors. Associated nausea: Yes Associated symtoms: Reports nausea; Denies chest pain, dysuria or headache(s) Review of Systems 2 Const: Denies: fever(s), chills or change in appetite Eyes: Denies: eye discomfort ENMT: Denies: throat pain or dental pain Card: Denies: chest pain Resp: Denies: dyspnea GI: Reports: abdominal pain, nausea, vomiting and diarrhea : Denies: dysuria Musc: Denies: neck pain or back pain Skin/Breast: Denies: rash Neuro: Denies: headache(s) PFSH ED 2 PFSH: Medical History Meningioma Removed 07/23/2020. Blurry vision, right eye s/p surgery High risk medication use Inflammatory arthritis Uterine fibroid Identified on ultrasound in 2009 Idiopathic thrombocytopenia purpura Depression with anxiety Sleep apnea Systemic lupus erythematosus Fibromyalgia Hypertension Surgical History S/P brain surgery (08/02/20) Removal meningioma. Performed in [place], [place]. No history of previous surgery Family History Family/Other Breast cancer maternal aunt Ovarian cancer maternal aunt Thyroid disease maternal aunt Grandfather Hypertension paternal Diabetes paternal Father Hypertension Diabetes Social History Substance/Drug Use: never Physical Exam 2 Const: COMMON NORMALS: no acute distress, patient oriented x3 and healthy appearing HENMT: COMMON NORMALS: normocephalic and atraumatic HEAD & SCALP: n ormocephalic and atraumatic Eye: COMMON NORMALS: Equal, round and reactive pupils present and EOMs intact bilaterally PUPIL: Yes Equal, round and reactive pupils present Neck/C-Spine: COMMON NORMALS: full ROM and supple Chest: COMMONS NORMALS: normal inspection of the chest and normal palpation of entire chest wall Resp: COMMON NORMALS: normal respiratory effort, No retractions, No use of accessory muscles and clear to auscultation bilaterally AUSCULTATION: clear to auscultation bilaterally Cardio: COMMON NORMALS: regular rate, regular rhythm and No murmurs present (Cardio) RATE: regular rate RHYTHM: regular rhythm GI: COMMON NORMALS: Normal to inspection, nondistended, normoactive bowel sounds present, Soft to palpation, non-tender and no masses PALPATION: Yes Soft to palpation Extremity: COMMON NORMALS: normal to inspection and full ROM Neuro: COMMON NORMALS: patient oriented x3, moves all extremities and no focal motor deficits Psych: COMMON NORMALS: mental status grossly normal, Normal thought process present and cooperative THOUGHT PROCESS: Normal thought process present Skin: COMMON NORMALS: no rashes or lesions noted and no wounds GENERAL SKIN EXAM: no rashes or lesions noted Course 2 Vital Signs: Vital signs: Vital Signs Temperature 98.2 F 08/03/23 19:00 Pulse Rate 75 08/03/23 19:00 Respiratory Rate 17 08/03/23 19:00 Blood Pressure 191/99 08/03/23 19:00 Pulse Oximetry 98 08/03/23 19:00 Oxygen Delivery Me thod Room Air 08/03/23 19:00 MDM - Nausea/Vomiting/Diarrhea Medical Decision Making Patient presents here with vomiting she feels much improved here after Zofran she has mild leukocytosis likely from her vomiting abdominal exam at discharge is benign potassium here is 3.0 did give her a dose of potassium here she takes potassium supplements at home once a day I did inform her that increase it to 3 times for the next 4 days and then follow-up with PCP next week to have her potassium rechecked she is return if worsening she understands agrees to plan. Medical Records I reviewed the patient's medical records. Lab Data I reviewed the patient's lab results. 08/03/23 18:40 08/03/23 18:40 Laboratory Results WBC 15.07 10^3/uL (3.29-11.43) H 08/03/23 18:40 RBC 5.34 10^6/uL (3.85-5.65) 08/03/23 18:40 Hgb 13.80 g/dL (11.27-16.99) 08/03/23 18:40 Hct 43.7 % (36-47) 08/03/23 18:40 MCV 81.8 fl (85-98) L 08/03/23 18:40 MCH 25.8 pg (27-33) L 08/03/23 18:40 MCHC 31.6 g/dL (30-55) 08/03/23 18:40 RDW 16.3 % (12.1-15.1) H 08/03/23 18:40 Plt Count 212 10^3/cmm (157-399) 08/03/23 18:40 MPV 12.0 fL (7.4-10.4) H 08/03/23 18:40 Neut % (Auto) 85.4 % 08/03/23 18:40 Lymph % (Auto) 8.8 % 08/03/23 18:40 [place] % (Auto) 5.2 % 08/03/23 18:40 Eos % (Auto) 0.0 % 08/03/23 18:40 Baso % (Auto) 0.1 % 08/03/23 18:40 Neut # (Auto) 12.86 10^3/uL (1.8-7.7) H 08/03/23 18:40 Lymph # (Auto) 1.3 10^3/uL (0.8-4.8) 08/03/23 18:40 [place] # (Auto) 0.8 10^3/uL (0.2-0.9) 08/03/23 18:40 Eos # (Auto) 0.0 10^3/uL (0.0-0.8) 08/03/23 18:40 Baso # (Auto) 0.0 10^3/uL (0.0-0.1) 08/03/23 18:40 Nucleated RBC % (auto) 0 % 08/03/23 18:40 Nucleated RBCs # 0.0 /100WBC 08/03/23 18:40 Sodium 138 mmol/L (136-145) 08/03/23 18:40 Potassium 3.0 mmol/L (3.5-5.1) L 08/03/23 18:40 Chloride 99 mmol/L (98-107) 08/03/23 18:40 Carbon Dioxide 22 mmol/L (22-29) 08/03/23 18:40 Anion Gap 20.0 (5-19) H 08/03/23 18:40 BUN 11 mg/dL (6-20) 08/03/23 18:40 Creatinine 0.6 mg/dL (0.5-0.9) 08/03/23 18:40 GFR Calculation 105.0 mL/min (90-130) 08/03/23 18:40 Glucose 150 mg/dL (65-115) H 08/03/23 18:40 Calculated Osmolality 288 mOsm/kg (285-295) 08/03/23 18:40 Calcium 9.2 mg/dL (8.5-10.5) 08/03/23 18:40 Total Bilirubin 0.8 mg/dL (0.15-1.2) 08/03/23 18:40 AST 13 U/L (0-32) 08/03/23 18:40 ALT 13 U/L (0-33) 08/03/23 18:40 Alkaline Phosphatase 97 U/L (35-105) 08/03/23 18:40 Total Protein 7.4 g/dL (6.6-8.7) 08/03/23 18:40 Albumin 4.1 g/dL (3.5-5.2) 08/03/23 18:40 Globulin 3.3 g/dL (1.3-4.6) 08/03/23 18:40 Lipase 19 U/L (13-60) 08/03/23 18:40 No radiology studies performed this visit Discharge Plan Discharge Patient Disposition: Home Clinical Impression: Vomiting, Hypokalemia Condition: Stable Prescriptions: New ondansetron 4 mg tablet,disintegrating 4 mg PO Q6H PRN (Reason: nausea and vomiting) Qty: 14 0RF No Action bumetanide 1 mg tablet 1 mg PO BID lisinopril 40 mg tablet 40 mg PO QAM alprazolam 0.5 mg tablet 0.25 mg PO Q6H PRN (Reason: anxiety) paroxetine HCl [Paxil] 40 mg tablet 40 mg PO QAM cholecalciferol (vitamin D3) 50 mcg (2,000 unit) capsule 50 mcg PO DAILY Qty: 90 1RF hydroxychloroquine 200 mg tablet 200 mg PO BID Qty: 180 1RF sulfasalazine 500 mg tablet 0.5 g PO BID Qty: 60 3RF Rx Instructions: Take 1 tab daily x1wk then stay on 1 tab twice daily.... give with food (meal/snack) leflunomide 20 mg tablet 20 mg PO QAM Qty: 30 3RF prednisone 20 mg tablet See Rx Instructions PO .COMPLEX PRN (Reason: joint pain flare) Qty: 30 1RF Rx Instructions: take 1 or 2 tab daily for up to 7 days as needed for arthritis flare prednisone 5 mg tablet 5 mg PO QAM Qty: 30 3RF amlodipine 10 mg tablet 10 mg PO QAM ondansetron 4 mg tablet,disintegrating 4 mg PO Q6H PRN (Reason: Nausea And Vomiting) Tylenol Ex Str Rapid Release 500 mg Tablet 1,000 mg PO Q6H PRN (Reason: Pain) potassium chloride 20 mEq tablet,ER particles/crystals 20 meq PO QAM ondansetron 4 mg tablet,disintegrating 4 mg PO TID PRN (Reason: nausea and vomiting) Qty: 20 0RF Protonix 40 mg tablet,delayed release (DR/EC) 40 mg PO DAILY Qty: 10 0RF potassium chloride 20 mEq packet 20 meq PO DAILY Qty: 5 0RF Discharge Orders: Discharge ED (Routine); Ordered 08/03/23 Ordered By: Armond Doshi Referrals: Nava Briscoe MD [Primary Care Provider] - 1-3 days Discharge Diet: Advance as tolerated Discharge Activity: Resume usual activity Patient Instructions: Hypokalemia (ED), Acute Nausea and Vomiting (ED) Activity Restrictions/Additional Instructions: increase your potassium to 3 a day over the next 4 days Coding Level of Care Code ED Restaurant Managing Partner for Nico Smith
[2023-08-03] MEDS: ondansetron 2 mg/ML SDV 2 mL 4 MG IVP (20:18)
[2023-08-03] MEDS: potassium chloride ER 20 mEq Tablet 60 MEQ PO (20:18)
[2023-08-03] MEDS: sodium chloride 0.9% 1,000 ML 999 ML IV (20:18)
[2023-08-03 20:31] LABS: Add Urine Microscopic? NO; Charge for UA Resulting for Rev
[2023-08-03 20:37] LABS: Bilirubin Urine Neg (Negative); Blood Urine Neg (Negative); Glucose Urine UA Norm (Normal); Ketones Urine 2+ (Negative); Leukocyte Esterase Urine Negative (Negative); Nitrate Urine Negative (Negative); Protein Urine Neg (Negative); Sulfosalicylic Acid Urine Negative (Negative); Urine Appearance Clear (CLEAR); Urine Color Yellow (Yellow); Urobilinogen Urine Neg (Negative); pH Urine 8 (5-7)
[2023-08-03 21:19] VITALS: BP 191/99; PULSE 75; RESP 17; TEMP 36.8; O2SAT 98
[2023-08-03] MEDS: ondansetron 4 MG Tablet PO (21:19)
== END 2023-08-03 21:20 | disposition home or self-care (01) ==
PROVIDERS: Emergency Provider Emergency Medicine; PCP Internal Medicine
DX: R11.11 Vomiting without nausea (principal); E87.6 Hypokalemia; M32.9 Systemic lupus erythematosus, unspecified; I10 Essential (primary) hypertension
CPT/HCPCS: 36415; 80053; 81003; 83690; 85025; 93005; 96361; 96374; 99284; J2405; J7030; Q0162

== ENCOUNTER 2023-09-18 07:46 | Outpatient (CLI) | payer MEDICARE, OTHER, SELFPAY ==
--- NOTE | 2023-09-18 07:50 | MM_ITS ---
WS: [id number] BILATERAL SCREENING DIGITAL TOMOSYNTHESIS MAMMOGRAM WITH CAD HISTORY: SCREENING COMPARISON: 08/14/2022, 06/27/2021 and 03/08/2020 Bilateral CC and MLO views with tomosynthesis and synthetic mammography submitted. Computer aided det ection analyzed. Breast composition: There are scattered areas of fibroglandular density. No suspicious masses, microc alcifications or architectural distortion. Reidentified is a RIGHT breast mass just lateral to the ni pple line at a middle depth measuring 9 mm. This has been present on prior examinations with no incre ase in size. No suspicious calcifications within either breast. IMPRESSION: MM/[place] [id number] BI-RADS: 2-Benign FOLLOW UP: 1 Year Follow-up
== END 2023-09-18 07:47 | disposition home or self-care (01) ==
LOC: RAD 07:46
PROVIDERS: PCP Internal Medicine; Visit Provider Internal Medicine
DX: Z12.31 Encounter for screening mammogram for malignant neoplasm of breast (principal); R92.323 Mammographic fibroglandular density, bilateral breasts; N63.10 Unspecified lump in the right breast, unspecified quadrant
CPT/HCPCS: 77063; 77067

== ENCOUNTER 2023-10-22 09:44 | Outpatient (CLI) | payer MEDICARE, OTHER, SELFPAY ==
--- NOTE | 2023-10-22 09:50 | NM_ITS ---
WS: [id number] NUCLEAR MEDICINE GASTRIC STUDY CLINICAL INFORMATION: NAUSEA AND VOMITING TECHNIQUE: Following oral ingestion of cooked egg mixed with 0.99 mCi technetium 99m sulfur colloid, anterior images of the stomach were obtained over the course of 90 minutes. Activity curve was perfor med over the course of 90 minutes with linear regression analysis. COMPARISON: None. FINDINGS: Oral ingestion of a cooked egg mixture. T 1/2 emptying 209 minutes Only 8% emptying at 59 minutes Only 25% emptying at 120 minutes IMPRESSION: Findings compatible with delayed gastric emptying. Recommend correlation for gastroparesis. *Normal median T1 half 90 minutes for solid egg meal (45-110 minutes). Delayed gastric retention is defined as 90% retained at 1 hour, 60% at 2 hours, 30% at 3 hours, and 10% at 4 hours (normal percent gastric retention is 37-90% at 1 hour, 30-60% at 2 hours, and 0-10% a t 4 hours).
== END 2023-10-22 09:45 | disposition home or self-care (01) ==
PROVIDERS: PCP Internal Medicine; Visit Provider Internal Medicine
DX: R11.2 Nausea with vomiting, unspecified (principal)
CPT/HCPCS: 78264; A9541

== ENCOUNTER 2023-12-02 12:07 | Outpatient (CLI) | payer MEDICARE, OTHER, SELFPAY ==
[2023-12-02 13:05] LABS: Basophils # 0.1 10^3/uL (0.0-0.1); Basophils % 0.8 %; Eosinophils # 0.1 10^3/uL (0.0-0.8); Eosinophils % 0.8 %; Hematocrit 41.5 % (36-47); Lymphocytes # 1.2 10^3/uL (0.8-4.8); Lymphocytes % 11.5 %; Mean Corpuscular HGB Conc 31.6 g/dL (30-55); Mean Corpuscular Hemoglobin 28.1 pg (27-33); Mean Corpuscular Volume 89.1 fl (85-98); Mean Platelet Volume 11.9 fL (7.4-10.4); Monocytes # 0.7 10^3/uL (0.2-0.9); Neutrophils # 8.39 10^3/uL (1.8-7.7); Neutrophils % 79.5 %; Nucleated Red Blood Cells % 0 %; Platelet Count 152 10^3/cmm (157-399); Red Blood Count 4.66 10^6/uL (3.85-5.65); Red Cell Distribution Width 15.1 % (12.1-15.1); White Blood Count 10.54 10^3/uL (3.29-11.43)
[2023-12-02 13:30] LABS: Alanine Aminotransferase 15 U/L (0-33); Albumin Level 4.2 g/dL (3.5-5.2); Alkaline Phosphatase 83 U/L (35-105); Aspartate Amino Transferase 17 U/L (0-32); C Reactive Protein 23.1 mg/L (0.0-4.9); Globulin 3.2 g/dL (1.3-4.6); Total Bilirubin 0.3 mg/dL (0.15-1.2); Total Protein 7.4 g/dL (6.6-8.7)
[2023-12-02 13:42] LABS: 25 Hydroxy Vitamin D 28 ng/mL (30-100)
== END 2023-12-02 12:08 | disposition home or self-care (01) ==
LOC: LAB 12:09
PROVIDERS: PCP Internal Medicine; Visit Provider Internal Medicine Rheumatology
DX: M19.90 Unspecified osteoarthritis, unspecified site (principal); Z79.899 Other long term (current) drug therapy
CPT/HCPCS: 36415; 80076; 82306; 82565; 85025; 86140

== ENCOUNTER → 2024-01-19 12:41 | Outpatient (BNVA) | payer MEDICARE, OTHER, SELFPAY | PROVIDERS: PCP Internal Medicine; Visit Provider Internal Medicine Rheumatology | DX: Z79.899 Other long term (current) drug therapy (principal); M32.19 Other organ or system involvement in systemic lupus erythematosus; M79.7 Fibromyalgia; M19.90 Unspecified osteoarthritis, unspecified site | CPT/HCPCS: 99214 ==

== ENCOUNTER 2024-04-28 11:28 | Outpatient (CLI) | payer MEDICARE, OTHER, SELFPAY ==
[2024-04-28 12:32] LABS: Basophils # 0.1 10^3/uL (0.0-0.1); Basophils % 0.8 %; Eosinophils # 0.1 10^3/uL (0.0-0.8); Eosinophils % 1.4 %; Hematocrit 38.2 % (36-47); Lymphocytes # 1.4 10^3/uL (0.8-4.8); Lymphocytes % 18.6 %; Mean Corpuscular HGB Conc 30.9 g/dL (30-55); Mean Corpuscular Hemoglobin 28.2 pg (27-33); Mean Corpuscular Volume 91.2 fl (85-98); Mean Platelet Volume 11.9 fL (7.4-10.4); Monocytes # 0.9 10^3/uL (0.2-0.9); Monocytes % 11.7 %; Neutrophils # 5.11 10^3/uL (1.8-7.7); Nucleated Red Blood Cells % 0 %; Platelet Count 145 10^3/cmm (157-399); Red Blood Count 4.19 10^6/uL (3.85-5.65); White Blood Count 7.63 10^3/uL (3.29-11.43)
[2024-04-28 12:49] LABS: Alanine Aminotransferase 9 U/L (0-33); Albumin Level 3.8 g/dL (3.5-5.2); Alkaline Phosphatase 89 U/L (35-105); Aspartate Amino Transferase 9 U/L (0-32); C Reactive Protein 22.7 mg/L (0.0-4.9); Globulin 2.8 g/dL (1.3-4.6); Glomerular Filtration Rate 104.6 mL/min (90-130); Total Bilirubin 0.3 mg/dL (0.15-1.2); Total Protein 6.6 g/dL (6.6-8.7)
== END 2024-04-28 11:29 | disposition home or self-care (01) ==
LOC: LAB 11:28
PROVIDERS: PCP Internal Medicine; Visit Provider Internal Medicine Rheumatology
DX: Z79.899 Other long term (current) drug therapy (principal); M32.19 Other organ or system involvement in systemic lupus erythematosus
CPT/HCPCS: 36415; 80076; 82565; 85025; 86140

== ENCOUNTER → 2024-05-24 12:58 | Outpatient (BNVA) | payer MEDICARE, OTHER, SELFPAY | PROVIDERS: PCP Internal Medicine; Visit Provider Internal Medicine Rheumatology | DX: M19.90 Unspecified osteoarthritis, unspecified site (principal); M19.011 Primary osteoarthritis, right shoulder; M32.19 Other organ or system involvement in systemic lupus erythematosus; M79.7 Fibromyalgia; Z79.899 Other long term (current) drug therapy; F32.A Depression, unspecified; G47.33 Obstructive sleep apnea (adult) (pediatric); Z98.890 Other specified postprocedural states | CPT/HCPCS: 99214 ==

== ENCOUNTER 2024-08-31 13:00 | Outpatient (CLI) | payer MEDICARE, OTHER, SELFPAY ==
[2024-08-31 13:23] LABS: Basophils # 0.1 10^3/uL (0.0-0.1); Basophils % 0.8 %; Eosinophils # 0.1 10^3/uL (0.0-0.8); Eosinophils % 0.8 %; Hematocrit 40.3 % (36-47); Lymphocytes # 1.5 10^3/uL (0.8-4.8); Lymphocytes % 16.8 %; Mean Corpuscular HGB Conc 30.8 g/dL (30-55); Mean Corpuscular Hemoglobin 27.4 pg (27-33); Mean Corpuscular Volume 89.2 fl (85-98); Mean Platelet Volume 10.7 fL (7.4-10.4); Monocytes # 0.8 10^3/uL (0.2-0.9); Neutrophils # 6.37 10^3/uL (1.8-7.7); Neutrophils % 71.8 %; Nucleated Red Blood Cells % 0 %; Platelet Count 161 10^3/cmm (157-399); Red Blood Count 4.52 10^6/uL (3.85-5.65); Red Cell Distribution Width 14.4 % (12.1-15.1); White Blood Count 8.87 10^3/uL (3.29-11.43)
[2024-08-31 13:25] LABS: Erythrocyte Sedimentation Rate 12 mm/hr (0-15)
[2024-08-31 13:44] LABS: Alanine Aminotransferase 13 U/L (0-33); Albumin Level 4.1 g/dL (3.5-5.2); Alkaline Phosphatase 84 U/L (35-105); Aspartate Amino Transferase 12 U/L (0-32); C Reactive Protein 24.3 mg/L (0.0-4.9); Glomerular Filtration Rate 129.1 mL/min (90-130); Total Bilirubin 0.3 mg/dL (0.15-1.2); Total Protein 7.1 g/dL (6.6-8.7)
== END 2024-08-31 13:01 | disposition home or self-care (01) ==
LOC: LAB 13:03
PROVIDERS: PCP Internal Medicine; Visit Provider Internal Medicine Rheumatology
DX: Z79.899 Other long term (current) drug therapy (principal); M32.19 Other organ or system involvement in systemic lupus erythematosus
CPT/HCPCS: 36415; 80076; 82565; 85025; 85651; 86140

== ENCOUNTER 2024-10-20 07:59 | Outpatient (CLI) | payer MEDICARE, OTHER, SELFPAY ==
--- NOTE | 2024-10-20 08:04 | MM_ITS ---
WS: [id number] BILATERAL SCREENING DIGITAL TOMOSYNTHESIS MAMMOGRAM WITH CAD HISTORY: SCREENING COMPARISON: 09/18/2023, 08/14/2022 and 06/27/2021 Bilateral CC and MLO views with tomosynthesis and synthetic mammography submitted. Computer aided detection analyzed. Breast composition: There are scattered areas of fibroglandular density. No suspicious masses, microcalcifications or architectural distortion. Focal asymmetry upper outer quadrant LEFT breast is stable over multiple prior years. MM/MM scr BI tomosynthesis [id number] IMPRESSION: BI-RADS: 2 - Benign. FOLLOW UP: 1 Year Follow-up
== END 2024-10-20 08:00 | disposition home or self-care (01) ==
LOC: RAD 08:00
PROVIDERS: PCP Internal Medicine; Visit Provider Internal Medicine
DX: Z12.31 Encounter for screening mammogram for malignant neoplasm of breast (principal); R92.323 Mammographic fibroglandular density, bilateral breasts; N64.89 Other specified disorders of breast
CPT/HCPCS: 77063; 77067

== ENCOUNTER → 2024-12-27 12:51 | Outpatient (BNVA) | payer MEDICARE, OTHER, SELFPAY | PROVIDERS: PCP Internal Medicine; Visit Provider Internal Medicine Rheumatology | DX: M32.19 Other organ or system involvement in systemic lupus erythematosus (principal); Z79.899 Other long term (current) drug therapy; M79.7 Fibromyalgia; M19.90 Unspecified osteoarthritis, unspecified site | CPT/HCPCS: 36415; 80076; 82306; 82565; 85025; 85651; 86140; 99214 ==

== ENCOUNTER 2025-04-04 08:13 | Outpatient (CLI) | payer MEDICARE, OTHER, SELFPAY ==
[2025-04-04 08:29] LABS: Hematocrit 39.8 % (36-47); Hemoglobin 12.20 g/dL (11.27-16.99); Mean Corpuscular HGB Conc 30.7 g/dL (30-55); Mean Corpuscular Hemoglobin 26.6 pg (27-33); Mean Corpuscular Volume 86.9 fl (85-98); Nucleated Red Blood Cells % 0 %; Platelet Count 161 10^3/cmm (157-399); Red Blood Count 4.58 10^6/uL (3.85-5.65); White Blood Count 8.21 10^3/uL (3.29-11.43)
[2025-04-04 08:46] LABS: Alanine Aminotransferase 10 U/L (0-33); Albumin Level 3.6 g/dL (3.5-5.2); Alkaline Phosphatase 82 U/L (35-105); Aspartate Amino Transferase 9 U/L (0-32); Globulin 2.9 g/dL (1.3-4.6); Total Protein 6.5 g/dL (6.6-8.7)
== END 2025-04-04 08:14 | disposition home or self-care (01) ==
PROVIDERS: PCP Internal Medicine; Visit Provider Internal Medicine Rheumatology
DX: Z79.899 Other long term (current) drug therapy (principal)
CPT/HCPCS: 36415; 80076; 82565; 85025; 85651; 86140

== ENCOUNTER → 2025-05-08 14:23 | Outpatient (BNVA) | payer MEDICARE, OTHER, SELFPAY | PROVIDERS: PCP Internal Medicine; Visit Provider Internal Medicine Rheumatology | DX: M32.19 Other organ or system involvement in systemic lupus erythematosus (principal); Z79.899 Other long term (current) drug therapy; M79.7 Fibromyalgia; M19.90 Unspecified osteoarthritis, unspecified site | CPT/HCPCS: 99214 ==

== ENCOUNTER 2025-07-26 08:38 | Emergency (ER) | payer MEDICARE, OTHER, SELFPAY ==
--- NOTE | 2025-07-26 08:42 | XR_ITS ---
WS: [id number] XR chest 1V portable [id number] REASON FOR EXAM: chest pain FINDINGS: The chest is unchanged compared to 06/05/2023. The heart and mediastinum are within normal limits. Calcified granulomas disease bilaterally. No acute pulmonary parenchymal or pleural abnormality. No significant abnormality of the bony thorax. XR/XR chest 1V portable [id number] IMPRESSION: Stable chest without acute abnormality.
--- NOTE | 2025-07-26 08:43 | ECG_ITS ---
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 Measurements Intervals [place] Rate: 73 P: 60 [place]: 166 QRS: -24 QRSD: 94 T: 52 QT: 381 QTc: 420 Interpretive Statements SINUS RHYTHM POSSIBLE ANTERIOR MYOCARDIAL INFARCTION , PROBABLY OLD [30 ms Q WAVE IN V3/V4, OR R < 0.2 mV IN V4] Compared to ECG 08/03/2023 19:11:16 Junctional rhythm no longer present Myocardial infarct finding still present Electronically Signed On 07-27-2025 17:30:40 HOOP RIVETING MACHINE OPERATOR HELPER by Pam Razo M.D. [email or web address] [id number]
[2025-07-26 08:44] VITALS: BP 153/101; PULSE 71; RESP 18; TEMP 36.3; O2SAT 95; BMI 44.2
[2025-07-26] MEDS: ondansetron 2 mg/ML SDV 2 mL 4 MG IVP (08:59)
[2025-07-26 09:00] VITALS: BP 171/101; PULSE 78; O2SAT 97
[2025-07-26 09:02] LABS: Hematocrit 40.8 % (36-47); Hemoglobin 12.80 g/dL (11.27-16.99); Mean Corpuscular HGB Conc 31.4 g/dL (30-55); Mean Corpuscular Hemoglobin 26.1 pg (27-33); Mean Corpuscular Volume 83.1 fl (85-98); Nucleated Red Blood Cells % 0 %; Platelet Count 151 10^3/cmm (157-399); Red Blood Count 4.91 10^6/uL (3.85-5.65); White Blood Count 7.01 10^3/uL (3.29-11.43)
--- NOTE | 2025-07-26 09:16 | W.ED.CHESTPA ---
HPI - Chest Pain General: Chief Complaint: Chest Pain Stated Complaint: chest pressure Time Seen by Provider: 07/26/25 08:41 History of Present Illness: 55-year-old female presents emergency room complaining of chest pressure that began around 7 this morning does not radiate anywhere. No shortness of breath no nausea or vomiting. She describes it as a grinding sensation. No rapid heart rates. She has no known history of coronary disease or arrhythmias Associated symptoms: Deny abdominal pain, dyspnea or fever(s) Related Data Home Medications ?Medication ?Instructions ?Recorded ?Confirmed lisinopril 40 mg tablet 40 mg PO QAM 09/05/19 07/26/25 paroxetine HCl 40 mg tablet (Paxil) 40 mg PO QAM 09/05/19 07/26/25 amlodipine 10 mg tablet 10 mg PO QAM 11/04/22 07/26/25 potassium chloride 20 mEq 20 meq PO QAM 04/04/23 07/26/25 tablet,extended release(part/cryst) acetaminophen 500 mg tablet 1,000 mg PO BID OA Pain 01/19/24 07/26/25 metoclopramide HCl 10 mg tablet 10 mg PO TID 01/21/24 07/26/25 aspirin 81 mg chewable tablet 81 mg PO DAILY 07/26/25 07/26/25 (Aspirin Childrens) metoprolol succinate 25 mg 25 mg PO DAILY 07/26/25 07/26/25 tablet,extended release 24 hr rosuvastatin 20 mg tablet 2 mg PO BEDTIME 07/26/25 07/26/25 Previous Rx's ?Medication ?Instructions ?Recorded pantoprazole 40 mg tablet,delayed 40 mg PO DAILY #10 tabs 04/04/23 release (Protonix) cholecalciferol (vitamin D3) 50 50 mcg PO DAILY #90 caps 12/03/23 mcg (2,000 unit) capsule prednisone 20 mg tablet See Rx Instructions PO .COMPLEX 12/27/24 PRN joint pain flare #30 tabs hydroxychloroquine 200 mg tablet 200 mg PO BID #180 tabs 05/08/25 leflunomide 20 mg tablet 20 mg PO QAM #90 tabs 05/08/25 prednisone 5 mg tablet 5 mg PO QAM joint pain flare #90 05/08/25 tabs sulfasalazine 500 mg tablet 1 g (2 x 500 mg) PO DAILY #360 tabs 05/08/25 isosorbide mononitrate 30 mg 30 mg PO DAILY #30 tabs 07/26/25 tablet,extended release 24 hr Allergies Allergy/AdvReac Type Severity Reaction Status Date / Time hydrocodone (From Vicodin) AdvReac Mild ALGY-Rash Verified 05/08/25 14:46 Review of Systems Const: Denies: fever(s) or chills Card: Reports: chest pain Resp: Denies: dyspnea GI: Denies: abdominal pain : Denies: dysuria, urinary frequency or urinary urgency Musc: Denies: neck pain or back pain Skin/Breast: Denies: rash PFSH ED PFSH: Medical History Neck pain Meningioma Removed 07/23/2020. Blurry vision, right eye s/p surgery High risk medication use Inflammatory arthritis Uterine fibroid Identified on ultrasound in 2009 Idiopathic thrombocytopenia purpura Depression with anxiety Sleep apnea Systemic lupus erythematosus Fibromyalgia Hypertension Surgical History H/O abdominal surgery Removed Large Liver tumor and was benign mid January 2023 S/P brain surgery (08/02/20) Removal meningioma. Performed in [place], [place]. No history of previous surgery Family History Family/Other Breast cancer maternal aunt Ovarian cancer maternal aunt Thyroid disease maternal aunt Grandfather Hypertension paternal Diabetes paternal Father Hypertension Diabetes Social History Smoking and tobacco/nicotine status: former use of tobacco/nicotine Alcohol intake: never Substance/Drug Use: never Physical Exam Const: GENERAL APPEARANCE: cooperative ORIENTATION/CONSCIOUSNESS: Yes awake, Yes oriented to person, Yes oriented to place and Yes oriented to time HENMT: COMMON NORMALS: normocephalic, atraumatic and hearing grossly normal bilaterally HEAD & SCALP: normocephalic and atraumatic Resp: COMMON NORMALS: normal respiratory effort, No retractions, No use of accessory muscles and clear to auscultation bilaterally AUSCULTATION: clear to auscultation bilaterally Cardio: COMMON NORMALS: regular rate, regular rhythm and No murmurs present (Cardio) RATE: regular rate RHYTHM: regular rhythm GI: COMMON NORMALS: Soft to palpation and No hepatosplenomegaly present AUSCULTATION: Yes normoactive bowel sounds PALPATION: Yes Soft to palpation, No Tenderness to palpation present (GI), No Guarding due to palpation present (GI) and Yes No hepatosplenomegaly present Extremity: COMMON NORMALS: normal to inspection, capillary refill normal, no clubbing, cyanosis or edema, no calf tenderness and no pedal edema Neuro: SENSORIUM/ORIENTATION: Yes oriented to person, Yes oriented to place and Yes oriented to time Skin: COMMON NORMALS: no rashes or lesions noted GENERAL SKIN EXAM: no rashes or lesions noted Course Vital Signs: Vital signs: Vital Signs Temperature 97.4 F L 07/26/25 08:44 Pulse Rate 63 07/26/25 11:40 Respiratory Rate 18 07/26/25 08:44 Blood Pressure 166/65 07/26/25 11:40 Pulse Oximetry 92 07/26/25 11:40 Oxygen Delivery Me thod Room Air 07/26/25 11:40 MDM - Chest Pain Medical Decision Making Medical decision making Social determinants: None I reviewed the patient's medical record. I reviewed the patient's current home meds. Alternate historians: None Differential diagnosis: SVT, intermittent A-fib, acute coronary syndrome, atypical chest pain Lab Review: Labs reviewed as found in the chart delta troponins did not show significant elevation patient had mild hypokalemia with a potassium of 3 slight anion gap of 22 glucose 170. CBC unremarkable BUN and creatinine normal Imaging:Chest x-ray no acute findings noted no effusions no infiltrates no cardiomegaly Assessment of risk Level of risk: Moderate Hospitalization considerations: Pending cardiac workup may require hospitalization Reexamination: No further symptoms Assessment and plan:Atypical chest discomfort patient has not had any further symptoms and blood pressure mildly elevated. Will set her up for outpatient follow-up with cardiology start isosorbide mononitrate 30 mg once daily baby aspirin daily return if has further symptoms. Lab Data 07/26/25 08:51 12 08:51 Radiology Impressions Chest X-Ray 07/26/25 08:42 IMPRESSION: Stable chest without acute abnormality. Laboratory Results WBC 7.01 10^3/uL (3.29-11.43) 07/26/25 08:51 RBC 4.91 10^6/uL (3.85-5.65) 07/26/25 08:51 Hgb 12.80 g/dL (11.27-16.99) 07/26/25 08:51 Hct 40.8 % (36-47) 07/26/25 08:51 MCV 83.1 fl (85-98) L 07/26/25 08:51 MCH 26.1 pg (27-33) L 07/26/25 08:51 MCHC 31.4 g/dL (30-55) 07/26/25 08:51 RDW 15.2 % (12.1-15.1) H 07/26/25 08:51 Plt Count 151 10^3/cmm (157-399) L 07/26/25 08:51 MPV 11.8 fL (7.4-10.4) H 07/26/25 08:51 Neut % (Auto) 66.7 % 07/26/25 08:51 Lymph % (Auto) 19.5 % 07/26/25 08:51 [place] % (Auto) 10.6 % 07/26/25 08:51 Eos % (Auto) 1.6 % 07/26/25 08:51 Baso % (Auto) 0.9 % 07/26/25 08:51 Neut # (Auto) 4.68 10^3/uL (1.8-7.7) 07/26/25 08:51 Lymph # (Auto) 1.4 10^3/uL (0.8-4.8) 07/26/25 08:51 [place] # (Auto) 0.7 10^3/uL (0.2-0.9) 07/26/25 08:51 Eos # (Auto) 0.1 10^3/uL (0.0-0.8) 07/26/25 08:51 Baso # (Auto) 0.1 10^3/uL (0.0-0.1) 07/26/25 08:51 Nucleated RBC % (auto) 0 % 07/26/25 08:51 Nucleated RBCs # 0.0 /100WBC 07/26/25 08:51 Sodium 140 mmol/L (136-145) 07/26/25 08:51 Potassium 3.0 mmol/L (3.5-5.1) L 07/26/25 08:51 Chloride 101 mmol/L (98-107) 07/26/25 08:51 Carbon Dioxide 20 mmol/L (22-29) L 07/26/25 08:51 Anion Gap 22.0 (5-19) H 07/26/25 08:51 BUN 12 mg/dL (6-20) 07/26/25 08:51 Creatinine 0.7 mg/dL (0.5-0.9) 12 08:51 GFR Calculation 87.2 mL/min (90-130) L 07/26/25 08:51 Glucose 170 mg/dL (65-115) H 07/26/25 08:51 Calculated Osmolality 294 mOsm/kg (285-295) 07/26/25 08:51 Calcium 9.0 mg/dL (8.5-10.5) 07/26/25 08:51 Total Bilirubin 0.3 mg/dL (0.15-1.2) 07/26/25 08:51 AST 10 U/L (0-32) 07/26/25 08:51 ALT 11 U/L (0-33) 07/26/25 08:51 Alkaline Phosphatase 92 U/L (35-105) 07/26/25 08:51 Troponin T Baseline 10 ng/L (0-10) 07/26/25 08:51 Troponin T 60 Minute 9.24 ng/L (0-10) 07/26/25 09:29 Delta Troponin T -0.76 ABS# (0-10) L 07/26/25 09:29 Total Protein 6.5 g/dL (6.6-8.7) L 07/26/25 08:51 Albumin 3.9 g/dL (3.5-5.2) 07/26/25 08:51 Globulin 2.6 g/dL (1.3-4.6) 07/26/25 08:51 All radiology interpretation(s) finalized by discharge EKG Data EKG 1: I personally reviewed and interpreted this EKG as follows: Interpretation: EKG 07/26/2025 8:43 AM sinus rhythm no STEMI no acute changes rate of 73 NC interval 166 QTc [address] changes noted. Compared to EKG 08/03/2025 previous EKG showed junctional rhythm. No acute changes noted EKG 2: I personally reviewed and interpreted this EKG as follows: Interpretation: EKG 07/26/2025 sinus rhythm rate of 60 NC interval 183 QTc [address] changes elevated no significant change from EKG done earlier same day no STEMI Discharge Plan Discharge Patient Disposition: Home Clinical Impression: Chest pain, atypical Condition: Stable Prescriptions: New isosorbide mononitrate 30 mg tablet extended release 24 hr 30 mg PO DAILY Qty: 30 0RF No Action lisinopril 40 mg tablet 40 mg PO QAM paroxetine HCl [Paxil] 40 mg tablet 40 mg PO QAM acetaminophen 500 mg tablet 1,000 mg PO BID hydroxychloroquine 200 mg tablet 200 mg PO BID Qty: 180 1RF leflunomide 20 mg tablet 20 mg PO QAM Qty: 90 1RF prednisone 5 mg tablet 5 mg PO QAM Qty: 90 1RF sulfasalazine 500 mg tablet 1 g PO DAILY Qty: 360 1RF Rx Instructions: give with food (meal/snack) prednisone 20 mg tablet See Rx Instructions PO .COMPLEX PRN (Reason: joint pain flare) Qty: 30 1RF Rx Instructions: take 1 or 2 tab daily for up to 7 days as needed for arthritis flare cholecalciferol (vitamin D3) 50 mcg (2,000 unit) capsule 50 mcg PO DAILY Qty: 90 1RF metoclopramide HCl 10 mg tablet 10 mg PO TID amlodipine 10 mg tablet 10 mg PO QAM potassium chloride 20 mEq tablet,ER particles/crystals 20 meq PO QAM pantoprazole [Protonix] 40 mg tablet,delayed release (DR/EC) 40 mg PO DAILY Qty: 10 0RF aspirin [Aspirin Childrens] 81 mg tablet,chewable 81 mg PO DAILY metoprolol succinate 25 mg tablet extended release 24 hr 25 mg PO DAILY rosuvastatin 20 mg tablet 2 mg PO BEDTIME Discharge Orders: Discharge ED (Routine); Ordered 07/26/25 Ordered By: Skinny Stahl Referrals: Nava Briscoe MD [Primary Care Provider, Internal Medicine] Discharge Diet: Usual diet Discharge Activity: Limit activity as instructed Patient Instructions: Chest Pain (ED), Opioid Safety, Pain Management, Patient Portal & Ankur Instructions Activity Restrictions/Additional Instructions: Thank you for choosing [facility] for your healthcare needs today. It is very important that you follow up as instructed or that you return to the Emergency Department should you have concerns or if your condition changes or worsens in any way. Emergency department visits are focused on emergent conditions, in some cases you may require further evaluation on an outpatient basis. You are seen emergency room the complaint chest pain your cardiac enzymes and EKG did not show any acute changes. Recommend you continue your current medications in addition to this we will start you on isosorbide mononitrate take 30 mg once daily also continue your baby aspirin daily. Case management make arrangements for you to have a short-term follow-up appointment with cardiology avoid any exertional activities if you have further chest pain return to the emergency room. (Please note that included in your discharge packet is information concerning opioid safety and pain management. This information is given to all patients were discharged from the ER regardless of their discharge diagnosis or the medicines they usually take or are prescribed.) Print Language: Icelandic Coding Level of Care Code ED Gta for Nico Smith Heart Score HEART Score Components History: Slightly Suspicous EKG: Normal Age: 45-64 yrs Risk Factors: 1 or 2 Risk Factors Troponin: Baseline Trop <16 ng/L HEART Score RESULT HEART Score: 2
[2025-07-26 09:25] LABS: Troponin(5th) Baseline 10 ng/L (0-10)
--- NOTE | 2025-07-26 09:42 | ECG_ITS ---
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 [email or web address]
[2025-07-26 09:54] LABS: Alanine Aminotransferase 11 U/L (0-33); Albumin Level 3.9 g/dL (3.5-5.2); Alkaline Phosphatase 92 U/L (35-105); Chloride 101 mmol/L (98-107); Sodium 140 mmol/L (136-145)
[2025-07-26 09:57] LABS: Aspartate Amino Transferase 10 U/L (0-32); Blood Urea Nitrogen 12 mg/dL (6-20); Calcium 9.0 mg/dL (8.5-10.5)
[2025-07-26 10:04] LABS: Anion Gap 22.0 (5-19); Carbon Dioxide 20 mmol/L (22-29); Globulin 2.6 g/dL (1.3-4.6); Glucose 170 mg/dL (65-115); Osmolality Calculated 294 mOsm/kg (285-295); Potassium 3.0 mmol/L (3.5-5.1); Total Protein 6.5 g/dL (6.6-8.7)
[2025-07-26 11:40] VITALS: BP 166/65; PULSE 63; O2SAT 92
== END 2025-07-26 11:55 | disposition home or self-care (01) ==
PROVIDERS: Emergency Provider Family Medicine; PCP Internal Medicine
DX: R07.89 Other chest pain (principal); Z79.82 Long term (current) use of aspirin; Z87.891 Personal history of nicotine dependence; I10 Essential (primary) hypertension
CPT/HCPCS: 36415; 71045; 80053; 84484; 85025; 93005; 96374; 99285; J2405; J9999

== ENCOUNTER 2025-08-15 11:49 | Outpatient (CLI) | payer MEDICARE, OTHER, SELFPAY ==
[2025-08-15 13:24] LABS: Hematocrit 44.0 % (36-47); Hemoglobin 13.30 g/dL (11.27-16.99); Mean Corpuscular HGB Conc 30.2 g/dL (30-55); Mean Corpuscular Hemoglobin 26.0 pg (27-33); Mean Corpuscular Volume 85.9 fl (85-98); Nucleated Red Blood Cells % 0 %; Platelet Count 152 10^3/cmm (157-399); Red Blood Count 5.12 10^6/uL (3.85-5.65); White Blood Count 8.79 10^3/uL (3.29-11.43)
[2025-08-15 13:49] LABS: Alanine Aminotransferase 14 U/L (0-33); Albumin Level 4.2 g/dL (3.5-5.2); Alkaline Phosphatase 95 U/L (35-105); Aspartate Amino Transferase 16 U/L (0-32); Globulin 2.9 g/dL (1.3-4.6); Total Protein 7.1 g/dL (6.6-8.7)
== END 2025-08-15 11:50 | disposition home or self-care (01) ==
LOC: LAB 11:52
PROVIDERS: PCP Internal Medicine; Visit Provider Internal Medicine Rheumatology
DX: Z79.899 Other long term (current) drug therapy (principal)
CPT/HCPCS: 36415; 80076; 82565; 85025; 85651; 86140; 86480